=== PATIENT | male | born 1935 | race Caucasian/White ===

== ENCOUNTER 2021-04-22 21:16 | Inpatient (IN) | payer MEDICARE ==
[2021-04-22] MEDS ORDERED: METOPROLOL TARTRATE 50 MG TAB PO STA (21:56)
[2021-04-22] MEDS ORDERED: NALOXONE 0.4 MG/ML 1 ML VIAL IV PRN (21:57)
--- NOTE | 2021-04-22 22:02 | ED ---
Fall HPI - General Chief Complaint: Fall Stated Complaint: fall hip pain Time Seen by Provider: 04/22/21 21:34 Source: patient, EMS Mode of arrival: EMS - History of Present Illness Initial Comments: Ky is a pleasantly demented 85yo M who arrives at our hospital as a transfer from [facility] for management of non-displaced right femoral neck fracture. Apparently the patient fell out of bed this morning, he complained of pain in his hip but was ambulatory however could tell that he was hurting so she took him to the hospital for evaluation where they found a nondisplaced fracture. Currently [facility] does not have orthopedic availability and the requested transfer to our facility. - Related Data Allergies Allergy/AdvReac Type Severity Reaction Status Date / Time bupropion [From Zyban] AdvReac Unknown Verified 04/22/21 21:38 codeine AdvReac Unknown Verified 04/22/21 21:36 erythromycin base AdvReac Unknown Verified 04/22/21 21:35 iodine AdvReac Abdominal Verified 04/22/21 21:36 Pain rosuvastatin [From Crestor] AdvReac Unknown Verified 04/22/21 21:38 Review of Systems ROS Statement: Those systems with pertinent positive or pertinent negative responses have been documented in the HPI. ROS Other: All systems not noted in ROS Statement are negative. Past Medical History Past Medical History: Diabetes Mellitus, Hypertension, Myocardial Infarction ([place]), Renal Disease Additional Past Surgical History / Comment(s): 3 stents placed in 2018 Smoking Status: Former smoker Past Alcohol Use History: None Reported Past Drug Use History: None Reported General Exam - General Exam Comments Initial Comments: Physical Exam GENERAL: Patient is well-developed and well-nourished. Patient is nontoxic and well-hydrated and is in no distress. HENT: Normocephalic, Atraumatic. EYES: PERRL, EOMI PULMONARY: Unlabored respirations. CARDIOVASCULAR: RRR Warm and well perfused extremities ABDOMEN: Non-distended SKIN: No rashes or bruising : Deferred NEUROLOGIC: Alert and oriented to self MUSCULOSKELETAL: Decreased ROM of hip due to pain Course Vital Signs 04/22/21 21:21 Pulse Rate 90 Respiratory 18 Rate Blood Pressure 184/89 O2 Sat by Pulse 98 Oximetry Medical Decision Making - Medical Decision Making Patient was accepted as a transfer from the current time, patient was stable, upon arrival patient's pain is managed as well as he doesn't try to move Patient care was discussed with Rojas olmos from the orthopedics team who agrees with plan for admission but states that they will not be able to take him to the operating room tomorrow therefore he could have a regular diet, needs preoperative clearance and medical management. Patient care was discussed with Dr. Harrell who accepts the admission as a medical admission with orthopedics on consult. Disposition Clinical Impression: Fall, Femoral neck fracture Disposition: ADMITTED IP TO THIS HOSP Condition: Serious Is patient prescribed a controlled substance at d/c from ED?: No Referrals: Nonstaff,Physician [Primary Care Provider] - 1-2 days
--- NOTE | 2021-04-22 22:47 | XR ---
EXAMINATION TYPE: XR Hip RT and AP Pelvis DATE OF EXAM: 04/22/2021 COMPARISON: Today HISTORY: Hip pain TECHNIQUE: 3 views FINDINGS: The pelvic ring is intact. There is oblique fracture through the femoral neck. There is no significant displacement. There is slight impaction. There is no dislocation. The acetabula appear in tact. There are stents in the iliac arteries. Sacroiliac joints appear normal. IMPRESSION: Slightly impacted femoral neck fracture without change in position compared to exam 5 lashay rs ago.
[2021-04-22 23:43] LABS: Eosinophils % (A) 2 %; HCT 32.4 % (39.0-53.0); HGB 9.9 gm/dL (13.0-17.5); Hypochromasia Slight; Lymphocytes % (A) 13 %; MCH 31.9 pg (25.0-35.0); MCHC 30.5 g/dL (31.0-37.0); MCV 104.5 fL (80.0-100.0); Macrocytosis Moderate; Mean Platelet Volume 7.8; Monocytes % (A) 7 %; Neutrophils % (A) 75 %; Platelet Count 324 k/uL (150-450); RBC 3.09 m/uL (4.30-5.90); RDW 14.6 % (11.5-15.5); WBC 9.2 k/uL (3.8-10.6)
[2021-04-22 23:44] LABS: Basophils # (A) 0.1 k/uL (0-0.2); Basophils % (A) 1 %; Eosinophils # (A) 0.2 k/uL (0-0.7); Lymphocytes # (A) 1.2 k/uL (1.0-4.8); Monocytes # (A) 0.6 k/uL (0-1.0); Neutrophils # (A) 6.9 k/uL (1.3-7.7)
[2021-04-23 00:09] LABS: Albumin 2.9 g/dL (3.5-5.0); Calcium 8.7 mg/dL (8.4-10.2); Total Bilirubin 0.9 mg/dL (0.2-1.3); Total Protein 6.5 g/dL (6.3-8.2)
[2021-04-23 00:29] LABS: Potassium 4.6 mmol/L (3.5-5.1)
[2021-04-23] MEDS: ACETAMINOPHEN TAB 325 MG TAB PO PRN ×2 (01:00→12:34)
[2021-04-23] MEDS ORDERED: METOPROLOL PO SCH (09:30)
[2021-04-23] MEDS: PANTOPRAZOLE 40 MG TABLET PO SCH (11:57)
--- NOTE | 2021-04-23 14:19 | P.HPOR ---
History of Present Illness H&P Date: 04/23/21 Chief Complaint: Right femoral neck fracture Patient is an 85-year-old male who was transferred to [facility] for further evaluation and treatment of an injury to the right lower extremity. Apparently the patient fell out of bed early in the morning on 04/22/2021. He was able to ambulate 3 most the day. His wanted him to be evaluated due to the increasing pain. At arrival at the original hospital, x-rays demonstrated a impacted right femoral neck fracture. He was transferred to our hospital for further management. I was contacted by the emergency room staff regarding the patient, was able to review the image that was brought with him on a disc from another hospital. I was unable to discuss the case my attending Dr. Fontanez. Patient was admitted under internal medicine, orthopedic team was consulted for the fracture. Patient was evaluated at bedside today, he was quite out of bed and unable to answer all my questions, this including exactly how the fall happened. He notes most of the pain in the right groin with movement and weightbearing. He has no other orthopedic complaints at this time. He lives at home with his , he utilizes a walker with ambulation. Review of Systems Constitutional: Reports as per HPI Past Medical History Past Medical History: Diabetes Mellitus, Hypertension, Myocardial Infarction ([place]), Renal Disease Additional Past Medical History / Comment(s): One kidney blocked, other one almost blocked; has stent from [id number]; carotid endarctectomy; aortic aneurysm with stent placement; Last Myocardial Infarction Date:: 2017 History of Any Multi-Drug Resistant Organisms: None Reported Past Surgical History: Heart Catheterization With Stent Additional Past Surgical History / Comment(s): per spouse, 4 stents placed, last in 2018 Past Anesthesia/Blood Transfusion Reactions: No Reported Reaction Date of Last Stent Placement:: 2017 Smoking Status: Former smoker Past Alcohol Use History: None Reported Past Drug Use History: None Reported Medications and Allergies Home Medications Medication Instructions Recorded Confirmed Type Aspirin EC [Ecotrin Low Dose] 81 mg PO DAILY 04/22/21 04/22/21 History Ezetimibe [Zetia] 10 mg PO DAILY 04/22/21 04/22/21 History Fenofibrate Nanocrystallized 145 mg PO DAILY 04/22/21 04/22/21 History [Fenofibrate] Iron 27mg 1 tab PO DAILY 04/22/21 04/22/21 History Metoprolol (Unknown) 1 tab PO DIRECTED 04/22/21 04/22/21 History Pantoprazole Sodium [Protonix] 40 mg PO DAILY 04/22/21 04/22/21 History Allergies Allergy/AdvReac Type Severity Reaction Status Date / Time bupropion [From Zyban] AdvReac Unknown Verified 04/22/21 22:24 codeine AdvReac Unknown Verified 04/22/21 22:24 erythromycin base AdvReac Unknown Verified 04/22/21 22:24 iodine AdvReac Abdominal Verified 04/22/21 22:24 Pain rosuvastatin [From Crestor] AdvReac Unknown Verified 04/22/21 22:24 Physical Examination Right lower extremity: No obvious open lesions or sores are visualized throughout the extremity, there is no significant areas of erythema or soft tissue swelling Mild tenderness with palpation to the proximal femur, logroll maneuver does reproduce some discomfort Nontender with palpation surrounding the knee, lower leg, foot or ankle Plantar flexion, dorsiflexion, EHL, FHL are intact Sensory exam to light touch is intact throughout the extremity Dorsalis pedis pulses 2+ Results - Labs Labs: Abnormal Lab Results - Last 24 Hours (Table) 04/22/21 04/22/21 Range/Units 11:20 11:20 RBC 3.09 L (4.30-5.90) m/uL Hgb 9.9 L (13.0-17.5) gm/dL Hct 32.4 L (39.0-53.0) % MCV 104.5 H (80.0-100.0) fL MCHC 30.5 L (31.0-37.0) g/dL Sodium 134 L (137-145) mmol/L Chloride 108 H (98-107) mmol/L Carbon Dioxide 19 L (22-30) mmol/L BUN 53 H (9-20) mg/dL Creatinine 2.48 H (0.66-1.25) mg/dL Glucose 100 H (74-99) mg/dL Albumin 2.9 L (3.5-5.0) g/dL H & H 04/22/21 Range/Units 11:20 Hgb 9.9 L (13.0-17.5) gm/dL Hct 32.4 L (39.0-53.0) % Result Diagrams: 04/22/21 11:20 04/22/21 11:20 - Diagnostic results Hip x-ray: report reviewed, image reviewed (X-rays reviewed of the right hip. Images demonstrated an impacted femoral neck fracture. No other acute osseous abnormality's were visualized) Assessment and Plan Assessment: Right impacted femoral neck fracture Status post fall from bed Other medical comorbidities Plan: Dr. Fontanez was available today to examine the patient and discussed treatment options. Our plan is to proceed with a right hip hemiarthroplasty on 04/24/2021. I did reach out to the patient's today over the phone and discussed our course of treatment and plan for surgery. The risks and benefits of the procedure were discussed, this to include infection, blood loss, neurovascular injury, development of blood clots, development of pain/stiffness, possible need for subsequent surgery. She is in good understanding. Consent will be obtained prior to procedure Nothing by mouth diet after midnight Pain control, oral medication and IV as needed DVT prophylaxis, we'll begin subcu medication after surgery Other medical specialty recommendations Further recommendations to follow Time with Patient: Less than 30
[2021-04-23] MEDS: HYDROcodone/APAP 5-325MG 1 EACH TAB PO PRN (16:15)
[2021-04-23] MEDS: SODIUM CHLORIDE 0.9% 1,000 ML IV SCH (16:30)
--- NOTE | 2021-04-23 18:21 | P.HPIM ---
History of Present Illness H&P Date: 04/23/21 Chief Complaint: Fall/ hip pain 85yo male patient with history of diabetes mellitus, hypertension, CAD/DC and chronic kidney disease, who arrives at our hospital as a transfer from [facility] for management of non-displaced right femoral neck fracture. Apparently the patient fell out of bed this morning, he complained of pain in his hip but was ambulatory however could tell that he was hurting so she took him to the hospital for evaluation where they found a nondisplaced fracture. Currently [facility] does not have orthopedic availability and the requested transfer to our facility. Patient's family members are at the bedside and reports patient having advanced coronary artery disease with multiple interventions; is not available on the phone Workup in ED reveals a WBC of 9.2, hemoglobin of 9.9, hematocrit 32.4 and platelet count of 324, sodium 134, potassium 4.6, BUN/creatinine 53/2.48 and glucose of 100 Right hip x-ray reveals slightly impacted femoral neck fracture Review of Systems REVIEW OF SYSTEMS: CONSTITUTIONAL: No fever, no malaise, no fatigue. HEENT: No recent visual problems or hearing problems. Denied any sore throat. CARDIOVASCULAR: No chest pain, orthopnea, PND, no palpitations, no syncope. PULMONARY: No shortness of breath, no cough, no hemoptysis. GASTROINTESTINAL: No diarrhea, no nausea, no vomiting, no abdominal pain. NEUROLOGICAL: No headaches, no weakness, no numbness. HEMATOLOGICAL: Denies any bleeding or petechiae. GENITOURINARY: Denies any burning micturition, frequency, or urgency. MUSCULOSKELETAL/RHEUMATOLOGICAL: Right hip pain ENDOCRINE: Denies any polyuria or polydipsia. The rest of the 14-point review of systems is negative. Past Medical History Past Medical History: Diabetes Mellitus, Hypertension, Myocardial Infarction ([place]), Renal Disease Additional Past Medical History / Comment(s): One kidney blocked, other one almost blocked; has stent from [id number]; carotid endarctectomy; aortic aneurysm with stent placement; Last Myocardial Infarction Date:: 2018 History of Any Multi-Drug Resistant Organisms: None Reported Past Surgical History: Heart Catheterization With Stent Additional Past Surgical History / Comment(s): per spouse, 4 stents placed, last in 2018 Past Anesthesia/Blood Transfusion Reactions: No Reported Reaction Date of Last Stent Placement:: 2017 Smoking Status: Former smoker Past Alcohol Use History: None Reported Past Drug Use History: None Reported Medications and Allergies Home Medications Medication Instructions Recorded Confirmed Type Aspirin EC [Ecotrin Low Dose] 81 mg PO DAILY 04/22/21 04/22/21 History Ezetimibe [Zetia] 10 mg PO DAILY 04/22/21 04/22/21 History Fenofibrate Nanocrystallized 145 mg PO DAILY 04/22/21 04/22/21 History [Fenofibrate] Iron 27mg 1 tab PO DAILY 04/22/21 04/22/21 History Metoprolol (Unknown) 1 tab PO DIRECTED 04/22/21 04/22/21 History Pantoprazole Sodium [Protonix] 40 mg PO DAILY 04/22/21 04/22/21 History Allergies Allergy/AdvReac Type Severity Reaction Status Date / Time bupropion [From Zyban] AdvReac Unknown Verified 04/22/21 22:24 codeine AdvReac headache Verified 04/23/21 15:14 erythromycin base AdvReac Unknown Verified 04/22/21 22:24 iodine AdvReac Abdominal Verified 04/22/21 22:24 Pain rosuvastatin [From Crestor] AdvReac Unknown Verified 04/22/21 22:24 Physical Exam Vitals: Vital Signs Temp Pulse Pulse Resp BP BP Pulse Ox 04/23/21 02:00 97.9 F 59 L 16 164/72 98 04/22/21 23:43 61 18 172/90 96 04/22/21 22:57 89 18 174/93 98 04/22/21 21:21 99.1 F 90 18 184/89 98 Intake and Output 04/22/21 04/23/21 04/23/21 22:59 06:59 14:59 Intake Total 250 Balance 250 Intake: Oral 250 Other: # Voids 2 Weight 65.771 kg 65.771 kg PHYSICAL EXAMINATION: GENERAL: The patient is alert and oriented x3, not in any acute distress. Well developed, well nourished. HEENT: Pupils are round and equally reacting to light. EOMI. No scleral icterus. No conjunctival pallor. Normocephalic, atraumatic. No pharyngeal erythema. No thyromegaly. CARDIOVASCULAR: S1 and S2 present. No murmurs, rubs, or gallops. PULMONARY: Chest is clear to auscultation, no wheezing or crackles. ABDOMEN: Soft, nontender, nondistended, normoactive bowel sounds. No palpable organomegaly. MUSCULOSKELETAL: No joint swelling or deformity. EXTREMITIES: Pain/swelling/tenderness with movement of right lower extremity NEUROLOGICAL: Gross neurological examination did not reveal any focal deficits. SKIN: No rashes. Results CBC & Chem 7: 04/22/21 11:20 04/22/21 11:20 Labs: Abnormal Lab Results - Last 24 Hours (Table) 04/22/21 04/22/21 Range/Units 11:20 11:20 RBC 3.09 L (4.30-5.90) m/uL Hgb 9.9 L (13.0-17.5) gm/dL Hct 32.4 L (39.0-53.0) % MCV 104.5 H (80.0-100.0) fL MCHC 30.5 L (31.0-37.0) g/dL Sodium 134 L (137-145) mmol/L Chloride 108 H (98-107) mmol/L Carbon Dioxide 19 L (22-30) mmol/L BUN 53 H (9-20) mg/dL Creatinine 2.48 H (0.66-1.25) mg/dL Glucose 100 H (74-99) mg/dL Albumin 2.9 L (3.5-5.0) g/dL Thrombosis Risk Factor Assmnt - Choose All That Apply Each Factor Represents 1 point: Medical pt on bed rest Other Risk Factors: Yes Each Risk Factor Represents 3 Points: Age 75 years or older Other congenital or acquired thrombophilia - If yes, enter type in comment: No Each Risk Factor Represents 5 Points: Hip, pelvis, or leg fracture (< 1 month) Thrombosis Risk Factor Assessment Total Risk Factor Score: 9 Thrombosis Risk Factor Assessment Level: High Risk Assessment and Plan Assessment: 1. Fall/right hip fracture - Likely mechanical fall; denies any chest pain or shortness of breath or palpitations - Orthopedic is consulted with plans for possible surgical intervention later today - We will add IV morphine for pain control; encourage incentive spirometry 2. Hypertension; stable on metoprolol 50 mg daily 3. Hyperlipidemia; Zetia 10 mg daily along with fenofibrate 160 mg daily 4. Gastroesophageal reflux disease; Protonix 40 mg daily 5. History of CAD/DC in the past; patient denies any complaint of chest pain or shortness of breath; EKG is completed and reviewed; patient is currently on aspirin, beta blockers and statin therapy; detailed discussion with patient's family at bedside report a pretty advanced coronary artery disease with multiple interventions; we will consult cardiology for presurgical clearance and testing DVT prophylaxis; per orthopedic recommendations CODE STATUS; full code
[2021-04-23 21:03] LABS: African American GFR (CKD) 26 (>60 ml/min/1.73 sqM); Anion Gap 5 mmol/L; Blood Urea Nitrogen 48 mg/dL (9-20); Carbon Dioxide 21 mmol/L (22-30); Chloride 107 mmol/L (98-107); Glucose 168 mg/dL (74-99); Non-African American GFR(CKD) 22 (>60 ml/min/1.73 sqM); Potassium 4.3 mmol/L (3.5-5.1); Sodium 133 mmol/L (137-145)
[2021-04-23 22:02] LABS: INR 1.2 (<1.2); Partial Thromboplastin Time 25.4 sec (22.0-30.0); Prothrombin Time 12.7 sec (9.0-12.0)
[2021-04-24] MEDS: HYDROcodone/APAP 5-325MG 1 EACH TAB PO PRN ×2 (00:59→19:18)
[2021-04-24] MEDS: MORPHINE SULFATE 4 MG/ML SYRINGE IVP PRN ×2 (05:21→17:36)
[2021-04-24] MEDS: SODIUM CHLORIDE 0.9% 1,000 ML IV SCH ×3 (07:36→20:18)
[2021-04-24] MEDS: EZETIMIBE 10 MG TAB PO SCH (08:24)
[2021-04-24] MEDS: PANTOPRAZOLE 40 MG TABLET PO SCH (08:24)
[2021-04-24] MEDS: FENOFIBRATE 160 MG TAB PO SCH (08:24)
[2021-04-24] MEDS ORDERED: METOPROLOL 25 MG PO SCH (08:45)
[2021-04-24] MEDS: METOPROLOL SUCCINATE (ER) 25 MG TAB.ER.24H PO SCH (10:18)
--- NOTE | 2021-04-24 11:14 | P.PN ---
Subjective Patient seen and examined. Patient not having any significant angina or heart failure type symptoms. Appears euvolemic on exam. Patient with multiple medical comorbidities which make him high risk for proposed surgery however no prohibitive risk. Continue with beta nichole and gentle IV fluid hydration. Full consult to follow. Objective - Vital Signs Vital signs: Vital Signs Temp 97.4 F L 04/24/21 05:16 Pulse 93 04/24/21 10:17 Resp 16 04/24/21 05:16 BP 207/95 04/24/21 10:17 Pulse Ox 97 04/24/21 10:17 Intake & Output 04/23/21 04/24/21 04/24/21 18:59 06:59 18:59 Intake Total 1150 Balance 1150 Intake: Intake, IV Titration 900 Amount Sodium Chloride 0.9% 1, 900 000 ml @ 100 mls/hr IV . Q10H STEPHANIE Rx#:[id number] Oral 250 Other: Voiding Method Urinal Urinal # Voids 2 4 - Labs CBC & Chem 7: 04/22/21 11:20 04/23/21 20:23 Labs: Abnormal Lab Results - Last 24 Hours (Table) 04/23/21 04/23/21 Range/Units 20:23 21:23 PT 12.7 H (9.0-12.0) sec INR 1.2 H (<1.2) Sodium 133 L (137-145) mmol/L Carbon Dioxide 21 L (22-30) mmol/L BUN 48 H (9-20) mg/dL Creatinine 2.53 H (0.66-1.25) mg/dL Glucose 168 H (74-99) mg/dL Calcium 8.0 L (8.4-10.2) mg/dL
[2021-04-24] MEDS ORDERED: hydrALAZINE HCL 20 MG/ML 1 ML VIAL IVP PRN (11:20)
--- NOTE | 2021-04-24 11:24 | P.CRDCN ---
History of Present Illness Consult date: 04/24/21 Reason for Consult (text): preop clearance History of present illness: HISTORY OF PRESENT ILLNESS This is an 85-year-old male patient follows with cardiology out of [facility] with past medical history of myocardial infarction 2004 status post 4 vessel CABG, myocardial infarction in 2018 while in [place] status post stents, carotid artery stenosis bilateral with surgery performed right sided, aortic aneurysm status post stent done at [facility], kidney stent, borderline diabetic on diet control, short-term memory loss, chronic anemia on iron, hypertension. Patient's and son are at the bedside and most history is obt ained from them. They do not recall any history of heart failure, valvular heart disease or atrial fibrillation. His creatinine today is 2.5 and apparently his baseline is 3.5. Yesterday morning, patient was apparently was trying to get out of bed and had a fall. Details are not clear as patient sleeps in the downstairs and his 's sleeps upstairs. Patient laid on the floor for about an hour and she was not able to lift him and EMS was called. Patient was initially seen at [facility]. Patient is afebrile, heart rate in the 90s, blood pressure 107/95, pulse ox 97% on room air. EKG is a sinus rhythm with no acute ST changes. CAT scan of brain showed no acute abnormality. Covid testing was negative. X-ray of the hip showed a nondisplaced right femur neck fracture and patient was transferred to [facility] for treatment. Laboratory studies performed here revealed hemoglobin of 9.9, his platelet count 324, WBC 9.2. INR 1.2. Sodium 133, CO2 21, BUN 48 creatinine 2.53. Blood sugar 168. REVIEW OF SYSTEMS Constitutional: No fever, no chills. No weakness, fatigue or lethargy. EENT: No headache. No dizziness. Lungs: No shortness of breath, cough, no sputum production. No wheezing. Cardiovascular: No chest pain, no lower extremity edema. No palpitations. No paroxysmal nocturnal dyspnea. No orthopnea. No lightheadedness or dizziness. No syncopal episodes. Abdominal: No abdominal pain. No nausea, vomiting. No diarrhea. No constipation. No bloody or tarry stools.. No loss of appetite. Genitourinary: No dysuria.. No urinary retention. Musculoskeletal: No myalgias. No muscle weakness, no gait dysfunction, no frequent falls. No back pain. No neck pain. Right hip pain. Integumentary: No wounds, no lesions. No rash or pruritus. No unusual bruising. Neurologic: No aphasia. No facial droop. No change in mentation, chronic short- term memory loss. No head injury. No headache. No paralysis. No paresthesia. Psychiatric: No depression. No anxiety. Endocrine: Noted abnormal blood sugars. PHYSICAL EXAMINATION Gen: This is a an 85-year-old male. He is resting bed appears to be comfortable at rest. No respiratory distress is noted. Patient's and son are at bedside HEENT: Head is atraumatic, normocephalic. Pupils equal, round. Sclerae is anicteric. NECK: Supple. No JVD. No lymphadenopathy. No thyromegaly. No carotid bruits. LUNGS: Clear to auscultation. No wheezes or rhonchi. No intercostal retractions. HEART: Regular rate and rhythm. Systolic murmur. ABDOMEN: Soft. Bowel sounds are present. No masses. No tenderness. EXTREMITIES: No pedal edema. No calf tenderness. Dorsalis pedis +1 bilaterally. NEUROLOGICAL: Patient is awake, alert and oriented x3. Cranial nerves 2 through 12 are grossly intact. ASSESSMENT Right femur neck fracture Coronary artery disease with previous four-vessel CABG and stents, details are not known Bilateral carotid artery disease Aortic aneurysm status post stent Hypertension, uncontrolled Chronic kidney disease Diabetic on diet controlled Short-term memory loss Chronic anemia Remote history of tobacco use Lower extremity pain with walking, may consider workup of possible PAD as an outpt PLAN Patient is scheduled for right hemiarthroplasty. He is at high risk for complications from surgical intervention but surgery is necessary. Patient resumed on metoprolol 25 mg daily, Start hydralazine 10 g IV push every 4 hours for systolic blood pressure greater than 150 Recommend gentle IV fluid hydration only at this point. Further recommendations to follow based upon clinical course Thank you kindly for this consultation. Nurse practitioner note has been reviewed, I agree with documented findings and plan of care. Patient was seen and examined. Past Medical History Past Medical History: Diabetes Mellitus, Hypertension, Myocardial Infarction ([place]), Renal Disease Additional Past Medical History / Comment(s): One kidney blocked, other one almost blocked; has stent from [id number]; carotid endarctectomy; aortic aneurysm with stent placement; Last Myocardial Infarction Date:: 2017 History of Any Multi-Drug Resistant Organisms: None Reported Past Surgical History: Heart Catheterization With Stent Additional Past Surgical History / Comment(s): per spouse, 4 stents placed, last in 2018 Past Anesthesia/Blood Transfusion Reactions: No Reported Reaction Date of Last Stent Placement:: 2017 Smoking Status: Former smoker Past Alcohol Use History: None Reported Past Drug Use History: None Reported Medications and Allergies Home Medications Medication Instructions Recorded Confirmed Type Aspirin EC [Ecotrin Low Dose] 81 mg PO DAILY 04/22/21 04/22/21 History Ezetimibe [Zetia] 10 mg PO DAILY 04/22/21 04/22/21 History Fenofibrate Nanocrystallized 145 mg PO DAILY 04/22/21 04/22/21 History [Fenofibrate] Iron 27mg 1 tab PO DAILY 04/22/21 04/22/21 History Metoprolol (Unknown) 25 mg PO DAILY 04/22/21 04/24/21 History Pantoprazole Sodium [Protonix] 40 mg PO DAILY 04/22/21 04/22/21 History Allergies Allergy/AdvReac Type Severity Reaction Status Date / Time bupropion [From Zyban] AdvReac Unknown Verified 04/22/21 22:24 codeine AdvReac headache Verified 04/23/21 15:14 erythromycin base AdvReac Unknown Verified 04/22/21 22:24 iodine AdvReac Abdominal Verified 04/22/21 22:24 Pain rosuvastatin [From Crestor] AdvReac Unknown Verified 04/22/21 22:24 Physical Exam Vitals: Vital Signs Temp Pulse Resp BP Pulse Ox 04/24/21 05:16 97.4 F L 95 16 214/99 98 04/23/21 20:11 97.6 F 73 16 176/75 98 04/23/21 12:10 97.5 F L 70 17 152/70 98 Intake and Output 04/23/21 04/24/21 04/24/21 22:59 06:59 14:59 Intake Total 1150 Balance 1150 Intake: Intake, IV Titration 900 Amount Sodium Chloride 0.9% 1, 900 000 ml @ 100 mls/hr IV . Q10H [facility] Rx#:[id number] Oral 250 Other: Voiding Method Urinal Urinal # Voids 2 4 Results 04/22/21 11:20 04/24/21 06:44 Coagulation 04/23/21 Range/Units 21:23 PT 12.7 H (9.0-12.0) sec APTT 25.4 (22.0-30.0) sec Comprehensive Metabolic Panel 04/23/21 Range/Units 20:23 Sodium 133 L (137-145) mmol/L Potassium 4.3 (3.5-5.1) mmol/L Chloride 107 (98-107) mmol/L Carbon Dioxide 21 L (22-30) mmol/L BUN 48 H (9-20) mg/dL Creatinine 2.53 H (0.66-1.25) mg/dL Glucose 168 H (74-99) mg/dL Calcium 8.0 L (8.4-10.2) mg/dL Current Medications Generic Name Dose Route Start Last Admin Trade Name Freq PRN Reason Stop Dose Admin Acetaminophen 650 mg 04/22/21 21:57 04/23/21 12:34 Acetaminophen Tab 325 Mg Tab PO 650 mg Q6HR PRN Administration Mild Pain or Fever > 100.5 Hydrocodone Bitart/Acetaminophen 1 each 04/23/21 15:08 04/24/21 00:59 Hydrocodone/Apap 5-325mg 1 Each Tab PO 1 each Q6HR PRN Administration Pain Ezetimibe 10 mg 04/24/21 09:00 04/24/21 08:24 Ezetimibe 10 Mg Tab PO 10 mg DAILY [facility] Administration Fenofibrate 160 mg 04/24/21 09:00 04/24/21 08:24 Fenofibrate 160 Mg Tab PO 160 mg DAILY STEPH[facility]IE Administration Sodium Chloride 1,000 mls @ 100 mls/hr 04/23/21 15:00 04/24/21 07:36 Saline 0.9% IV Not Given .Q10H [facility] Metoprolol Succinate 25 mg 04/24/21 10:00 Metoprolol Succinate (Er) 25 Mg Tab.Er.24h PO DAILY STEPH[facility]IE Morphine Sulfate 4 mg 04/23/21 18:22 04/24/21 05:21 Morphine Sulfate 4 Mg/Ml Syringe IVP 4 mg Q6HR PRN Administration Pain Naloxone HCl 0.2 mg 04/22/21 21:57 Naloxone 0.4 Mg/Ml 1 Ml Vial IV Q2M PRN Opioid Reversal Pantoprazole Sodium 40 mg 04/23/21 09:30 04/24/21 08:24 Pantoprazole 40 Mg Tablet PO 40 mg DAILY@0730 [facility] Administration Tramadol HCl 50 mg 04/23/21 15:13 Tramadol 50 Mg Tab PO QID PRN Moderate Pain Intake and Output 04/23/21 04/24/21 04/24/21 22:59 06:59 14:59 Intake Total 1150 Balance 1150 Intake: Intake, IV Titration 900 Amount Sodium Chloride 0.9% 1, 900 000 ml @ 100 mls/hr IV . Q10H [facility] Rx#:[id number] Oral 250 Other: Voiding Method Urinal Urinal # Voids 2 4 04/22/21 11:20 04/23/21 20:23
[2021-04-24] MEDS ORDERED: MORPHINE SULFATE 2 MG/ML SYRINGE IV PRN (12:22)
[2021-04-24] MEDS ORDERED: ONDANSETRON 4 MG/2 ML VIAL IVP PRN (12:22)
[2021-04-24] MEDS ORDERED: MAGNESIUM HYDROXIDE 2,400 MG/10 ML CUP PO PRN (12:22)
[2021-04-24] MEDS ORDERED: MIDAZOLAM 2 MG/2 ML VIAL ONE (12:25)
[2021-04-24] MEDS ORDERED: SODIUM CHLORIDE 0.9% 1,000 ML IV ONE (12:25)
[2021-04-24] MEDS ORDERED: PHENYLEPHRINE-0.9% NACL SYG 1,000 MCG/10 ML SYRINGE ONE (12:25)
[2021-04-24] MEDS ORDERED: fentaNYL (PF) 50 MCG/ML 2 ML AMP ONE (12:25)
[2021-04-24 12:45] LABS: African American GFR (CKD) 29.1 (60.0-200.0); Anion Gap 10.9 mmol/L (10.00-18.00); BUN/Creat Ratio 17.87 Ratio (12.00-20.00); Blood Urea Nitrogen 41.1 mg/dL (9.0-27.0); Calcium 8.5 mg/dL (8.7-10.3); Carbon Dioxide 19.1 mmol/L (20.0-27.5); Non-African American GFR(CKD) 25.1 (60.0-200.0); Potassium 4.2 mmol/L (3.5-5.5)
[2021-04-24] MEDS ORDERED: ceFAZolin 1,000 MG in SODIUM CHLORIDE 0.9% 1,000 ML IRRIGATION ONE (13:06)
[2021-04-24] MEDS ORDERED: LACTATED RINGERS 1,000 ML IV ONE (13:44)
[2021-04-24] MEDS ORDERED: LABETALOL SYRINGE 5 MG/ML IVP ONE (14:56)
--- NOTE | 2021-04-24 15:13 | XR ---
EXAMINATION TYPE: XR Hip Limited RT DATE OF EXAM: 04/24/2021 CLINICAL HISTORY: Right hip fracture. TECHNIQUE: Single AP portable view of the right hip is obtained immediately postoperatively. COMPARISON: Pelvic and right hip x-ray 2 days earlier.. FINDINGS: Metallic hardware from right hip arthroplasty is seen and appears satisfactory in alignment and position. There is evidence of recent surgery with subcutaneous gas and vertical oriented skin kirit noted laterally. IMPRESSION: Metallic hardware from right hip arthroplasty is satisfactory in position.
[2021-04-24] MEDS: SENNOSIDES-DOCUSATE SODIUM 1 EACH TAB PO SCH (19:18)
--- NOTE | 2021-04-24 20:26 | P.PN ---
Subjective Progress Note Date: 04/24/21 Principal diagnosis: Fall/Right hip fracture 85yo male patient with history of diabetes mellitus, hypertension, CAD/TX and chronic kidney disease, who arrives at our hospital as a transfer from [facility] for management of non-displaced right femoral neck fracture. Apparently the patient fell out of bed this morning, he complained of pain in his hip but was ambulatory however could tell that he was hurting so she took him to the hospital for evaluation where they found a nondisplaced fracture. Currently [facility] does not have orthopedic availability and the requested transfer to our facility. Patient's family members are at the bedside and reports patient having advanced coronary artery disease with multiple interventions; is not available on the phone Workup in ED reveals a WBC of 9.2, hemoglobin of 9.9, hematocrit 32.4 and platelet count of 324, sodium 134, potassium 4.6, BUN/creatinine 53/2.48 and glucose of 100 Right hip x-ray reveals slightly impacted femoral neck fracture Patient is seen and evaluated resting; patient is status post right hip hemiarthroplasty Objective - Vital Signs Vital signs: Vital Signs Temp 97.6 F 04/24/21 14:27 Pulse 78 04/24/21 15:22 Resp 16 04/24/21 15:22 BP 227/92 04/24/21 15:22 Pulse Ox 99 04/24/21 15:22 Intake & Output 04/23/21 04/24/21 04/24/21 18:59 06:59 18:59 Intake Total 1150 1251 Output Total 80 Balance 1150 1171 Intake: IV 1251 Intake, IV Titration 900 Amount Sodium Chloride 0.9% 1, 900 000 ml @ 100 mls/hr IV . Q10H [facility] Rx#:[id number] Oral 250 Output: Estimated Blood Loss 80 Other: Voiding Method Urinal Urinal # Voids 2 4 - Exam GENERAL: The patient is alert and oriented x3, not in any acute distress. Well developed, well nourished. HEENT: Pupils are round and equally reacting to light. EOMI. No scleral icterus. No conjunctival pallor. Normocephalic, atraumatic. No pharyngeal erythema. No thyromegaly. CARDIOVASCULAR: S1 and S2 present. No murmurs, rubs, or gallops. PULMONARY: Chest is clear to auscultation, no wheezing or crackles. ABDOMEN: Soft, nontender, nondistended, normoactive bowel sounds. No palpable organomegaly. MUSCULOSKELETAL: No joint swelling or deformity. EXTREMITIES: Pain/swelling/tenderness with movement of right lower extremity NEUROLOGICAL: Gross neurological examination did not reveal any focal deficits. SKIN: No rashes. - Labs CBC & Chem 7: 04/22/21 11:20 04/24/21 06:44 Labs: Abnormal Lab Results - Last 24 Hours (Table) 04/23/21 04/23/21 04/24/21 Range/Units 20:23 21:23 06:44 PT 12.7 H (9.0-12.0) sec INR 1.2 H (<1.2) Sodium 133 L (137-145) mmol/L Carbon Dioxide 21 L 19.1 L (22-30) mmol/L BUN 48 H 41.1 H (9-20) mg/dL Creatinine 2.53 H 2.3 H (0.66-1.25) mg/dL Est GFR (CKD-EPI)AfAm 29.1 L (60.0-200.0) Est GFR (CKD-EPI)NonAf 25.1 L (60.0-200.0) Glucose 168 H (74-99) mg/dL Calcium 8.0 L 8.5 L (8.4-10.2) mg/dL Assessment and Plan Assessment: 1. Fall/right hip fracture - Likely mechanical fall; denies any chest pain or shortness of breath or palpitations - Orthopedic is consulted with plans for possible surgical intervention later today - We will add IV morphine for pain control; encourage incentive spirometry 2. Hypertension; stable on metoprolol 50 mg daily 3. Hyperlipidemia; Zetia 10 mg daily along with fenofibrate 160 mg daily 4. Gastroesophageal reflux disease; Protonix 40 mg daily 5. History of CAD/TX in the past; patient denies any complaint of chest pain or shortness of breath; EKG is completed and reviewed; patient is currently on a spirin, beta blockers and statin therapy; detailed discussion with patient's family at bedside report a pretty advanced coronary artery disease with multiple interventions; we will consult cardiology for presurgical clearance and testing DVT prophylaxis; per orthopedic recommendations CODE STATUS; full code
--- NOTE | 2021-04-24 21:57 | P.OP ---
Date of Procedure: 04/24/21 Preoperative Diagnosis: Right displaced femoral neck fracture Postoperative Diagnosis: Right displaced femoral neck fracture Procedure(s) Performed: Right hip hemiarthroplasty for right displaced femoral neck fracture Implants: 1.)Pool Accolade II femoral stem, neck angle 132, size 6, 35mm neck length. 2.) Pool V40 Femoral head 28mm OD, -4mm offset. 3.) Francisco UHR [place] head Bipolar Component, OD 53mm. Anesthesia: spinal Surgeon: Sean Fontanez [employer] Engineer [employer]: Erasmo Bailey Estimated Blood Loss (ml): 80 Pathology: none sent Condition: stable Disposition: PACU Description of Procedure: This is a 85 year old male with multiple medical comorbidities who presented s/p fall from standing on to their right hip with inability to ambulate and pain in their hip. The patient was evaluated in the ED and admitted to the hospital with medical clearance for surgical intervention. Risks and benefits of surgery including bleeding, damage to surrounding tissue, infection, need for further surgery as well as risks of anesthesia including DVT pulmonary embolism and even and the patient wished to proceed with surgical intervention. The patient was seen in the pre-operative area by myself. Consent and H&P were completed and updated. The correct extremity was marked in the pre-operative area by myself and all other question were answered. Operative narrative: The patient was brought to the operating room by the department of anesthesia. Spinal anesthesia was performed by the department of anesthesia. The patient was then transferred carefully to the operative table and placed in the lateral position with an axillary role placed in the contralateral arm-pit region and the patient was secured in the lateral position with the aid of a pegboard with the hip perpendicular to the floor. All bony prominences were well padded. The left lower extremity was then prepped and draped in normal sterile fashion. Pre-operative time out was performed indicating the correct patient, procedure and laterality. All in the room agreed. Pre-operative antibiotics were given prior to skin incision. A curvilinear incision was made with a 10-blade scalpel on the lateral aspect of the hip, slightly posterior to the greater trochanter and carried distally towards the axis of the femoral shaft to initiate the posterior approach to the hip joint. Bovie cautery was used for meticulous hemostasis and dissection was then taken down to the tensor fascia. Tensor fascia was incised distally and extended proximally to the gluteus elaine muscle. Blunt finger dissection was then used to split the gluteus elaine muscle in its natural plane. Charnley retractor was then placed deep to the tensor fascia and gluteus elaine to unveil the trochanteric bursa. Bursa was sharply incised taking care to protect the sciatic nerve posteriorly. The short external rotators were then identified. Marcel retractor was then placed between the gluteus medius and piriformis tendon. The piriformis tendon and short external rotators were then tagged with a #5 Ethibond suture. Using bovie cautery the short external rotators were then incised off of their brandon insertion at the piriformis fossa and reflected posteriorly to protect the sciatic nerve. The posterior hip capsule was then incised in a L shaped fashion along the superior portion of the femoral neck taking care to stay on bone. Fracture hematoma was then evacuated, the femoral head was the extracted with a corkscrew and sized to a 52-53. The acetabulum was then thoroughly irrigated and all fracture fragments were debrided and removed and the labrum was intact with no signs of acetabular arthritis. Size 53 head on a stick was then placed into the acetabulum with good suction and appropriate fit and decision was made to go forward with a size 53 outer diameter head. Further remnants of the external rotator insertion were debrided form the piriformis fossa and femoral elevator and Wideman retractor was used to elevate the femur. A touch up neck was performed 1.5cm proximal to the lesser trochanter. Box osteotome was then utilized to gain entrance into the medullary canal taking care to stay lateralized. Axial canal finder was then inserted down the femoral shaft again keeping lateral pressure upon insertion. Sequential femoral broaching was then performed starting with a size 0 broach up to a size 6 which appeared to have a solid fit. A standard length neck and 0 offset femoral head was trialed. The hip was reduced and leg lengths were checked and found to be acceptable but slightly long and tight, therefore -4 size was trialed and found to be a better fit. The hip appeared to have good stability. The hip was then dislocated and the stem was found to be intact with good fit still after trialing. Final implants were then selected including a size 6, 132 degree neck femoral stem with a 53 outer diameter bipolar head and a -4 offset which was assembled and inserted into the femoral canal with lateral pressure to avoid varus placement. The hip was then reduced and ranged again and was stable with appropriate tensioning and leg lengths. A 2.0 drill bit was then used to drill 2 holes in the posterior aspect of the greater trochanter. The previously tagged short external rotators and capsule were then passed through the drill holes with a suture passer and the hip was then abducted and externally rotated to take pressure off of the short external rotators and capsular repair. The #5 Ethibond sutures were then tied with appropriate tension and a solid repair of the external rotators and posterior capsule was able to be achieved. IT band was then closed with locking #1 Vicryl sutures. Subcutaneous closure was performed with 0 Vicryl followed by 2-0 Vicryl and kirit for closure of skin. A sterile Optifoam dressing was then applied to the incision. The patient was then woken by the department of anesthesia and transferred back to the hospital bed and transported to PACU in stable condition. All needle and instrument counts were correct at the end of the procedure. Rojas DELONG was present for the case for skilled assistance, implant placement and protection of neurovascular structures. Sean Fontanez DO Orthopedic Surgeon
[2021-04-25] MEDS: traMADol 50 MG TAB PO PRN ×3 (00:13→19:21)
[2021-04-25] MEDS: HYDROcodone/APAP 5-325MG 1 EACH TAB PO PRN ×2 (04:12→10:11)
[2021-04-25 06:32] LABS: Basophils % (A) 0 %; Eosinophils % (A) 0 %; HCT 26.8 % (39.0-53.0); HGB 8.5 gm/dL (13.0-17.5); Hypochromasia Slight; Lymphocytes # (A) 0.8 k/uL (1.0-4.8); Lymphocytes % (A) 7 %; MCH 32.7 pg (25.0-35.0); MCHC 31.7 g/dL (31.0-37.0); MCV 103.4 fL (80.0-100.0); Macrocytosis Slight; Monocytes # (A) 0.6 k/uL (0-1.0); Monocytes % (A) 5 %; Neutrophils # (A) 10.5 k/uL (1.3-7.7); Neutrophils % (A) 87 %; Platelet Count 340 k/uL (150-450); RBC 2.59 m/uL (4.30-5.90); WBC 12.1 k/uL (3.8-10.6)
[2021-04-25] MEDS: FENOFIBRATE 160 MG TAB PO SCH (07:58)
[2021-04-25] MEDS: PANTOPRAZOLE 40 MG TABLET PO SCH (07:58)
[2021-04-25] MEDS: METOPROLOL SUCCINATE (ER) 25 MG TAB.ER.24H PO SCH (07:58)
[2021-04-25] MEDS: EZETIMIBE 10 MG TAB PO SCH (07:58)
[2021-04-25] MEDS: SODIUM CHLORIDE 0.9% 1,000 ML IV SCH ×2 (07:59→17:10)
--- NOTE | 2021-04-25 08:53 | P.PN ---
Subjective Progress Note Date: 04/25/21 Principal diagnosis: Status post right hip hemiarthroplasty Patient was evaluated today at bedside, he does have family present. He appears comfortable and resting in bed. He states that he has generalized discomfort of the right lower extremity, mainly with movement. Currently denies any headaches, lightheadedness, chest pain, shortness of breath. Objective - Vital Signs Vital signs: Vital Signs Temp 97.8 F 04/25/21 04:29 Pulse 106 H 04/25/21 04:29 Resp 16 04/25/21 04:29 BP 133/74 04/25/21 04:29 Pulse Ox 100 04/25/21 04:29 Intake & Output 04/24/21 04/25/21 04/25/21 18:59 06:59 18:59 Intake Total 1851 1900 Output Total 80 200 Balance 1771 1700 Intake: IV 1251 Intake, IV Titration 600 1300 Amount Sodium Chloride 0.9% 1, 600 1200 000 ml @ 100 mls/hr IV . Q10H [facility] Rx#:[id number] ceFAZolin 2 gm In Sodium 100 Chloride 0.9% 50 ml @ 100 mls/hr IVPB Q8H [facility] Rx#: [id number] Oral 600 Output: Urine 200 Estimated Blood Loss 80 Other: Voiding Method Urinal Urinal - Exam Right lower extremity: Foam dressing is in good position and condition. There is minimal soft tissue swelling and ecchymosis surrounding the medial and lateral aspects of the incision. Calf is soft, no tenderness with palpation. Plantar flexion, dors iflexion, EHL, FHL are intact. Sensory exam to light touch throughout the extremity is intact, dorsal pedis pulses 2+. - Labs CBC & Chem 7: 04/25/21 06:09 04/24/21 06:44 Labs: Abnormal Lab Results - Last 24 Hours (Table) 04/24/21 04/25/21 Range/Units 06:44 06:09 WBC 12.1 H (3.8-10.6) k/uL RBC 2.59 L (4.30-5.90) m/uL Hgb 8.5 L (13.0-17.5) gm/dL Hct 26.8 L (39.0-53.0) % MCV 103.4 H (80.0-100.0) fL Neutrophils # 10.5 H (1.3-7.7) k/uL Lymphocytes # 0.8 L (1.0-4.8) k/uL Carbon Dioxide 19.1 L (20.0-27.5) mmol/L BUN 41.1 H (9.0-27.0) mg/dL Creatinine 2.3 H (0.6-1.5) mg/dL Est GFR (CKD-EPI)AfAm 29.1 L (60.0-200.0) Est GFR (CKD-EPI)NonAf 25.1 L (60.0-200.0) Calcium 8.5 L (8.7-10.3) mg/dL Assessment and Plan Assessment: Postoperative day #1 status post right hip hemiarthroplasty Plan: Pain control, continue low-dose oral medication, IV pain medication as needed f or breakthrough DVT prophylaxis, continue subcu medication Wound care, monitor dressing, ok to change after 5 days Weight-bear as tolerated with walker PT/OT evaluation Medical recommendations Discharge planning: Anticipate discharge to rehab in the next day or 2 Time with Patient: Less than 30
[2021-04-25] MEDS ORDERED: amLODIPine 5 MG TAB PO SCH (09:30)
[2021-04-25 11:38] LABS: African American GFR (CKD) 24 (>60 ml/min/1.73 sqM); Anion Gap 7 mmol/L; Blood Urea Nitrogen 50 mg/dL (9-20); Calcium 8.1 mg/dL (8.4-10.2); Carbon Dioxide 17 mmol/L (22-30); Chloride 111 mmol/L (98-107); Glucose 111 mg/dL (74-99); Non-African American GFR(CKD) 21 (>60 ml/min/1.73 sqM); Potassium 4.6 mmol/L (3.5-5.1); Sodium 135 mmol/L (137-145)
--- NOTE | 2021-04-25 11:38 | XR ---
EXAMINATION TYPE: XR chest 1V portable DATE OF EXAM: 04/25/2021 Comparison: None Clinical History: 85-year-old male shortness of breath Findings: Median sternotomy wires are present. Post-CABG clips projecting at the left base. Loop recorder devic e projecting at the apex of the heart. Mild hyperinflation. Heart upper limits of normal in size. The re is patchy opacity at the right mid lung and some additional stranding bibasilar atelectasis. Impression: 1. Hyperinflation. Suspect underlying emphysema/COPD. 2. Post-CABG changes. 3. Some patchy atelectasis versus developing infiltrate at the right midlung. Clinically correlate.
--- NOTE | 2021-04-25 11:55 | P.PN ---
Subjective This is an 85-year-old male with a past medical history of myocardial infarction 2004 status post 4 vessel CABG, myocardial infarction in 2018 while in [place] status post stents, carotid artery stenosis bilateral with surgery performed right sided, aortic aneurysm status post stent done at [facility], kidney stent, borderline diabetic on diet control, short-term memory loss, chronic anemia on iron, hypertension. He follows with cardiology out of [facility]. We have been consulted for surgical clearance. Patient was admitted on after a mechanical fall and was found to have a right femur neck fracture. He underwent Right hip hemiarthroplasty on 04/24/2021. Patient seen and examined at bedside, no acute distress. He denies any chest pain, shortness of breath, lightheadedness, dizziness. Appears to be euvolemic on exam. Blood pressure 133/74, heart rate 85, afebrile, oxygen saturation greater than 92% on room air. Telemetry reviewed patient in sinus mechanism heart rate trend in the 80s He's currently maintained on IV hydralazine PRN, metoprolol succinate 25 mg daily PHYSICAL EXAMINATION GENERAL: In no acute distress. NECK: Supple without JVD or thyromegaly. LUNGS: Breath sounds clear to auscultation bilaterally. Respiration equal and unlabored. No wheezes, rales or rhonchi. HEART: Regular rate and rhythm without murmurs, rubs or gallops. S1 and S2 heard. EXTREMITIES: Normal range of motion, no edema. No clubbing or cyanosis. Peripheral pulses intact. ASSESSMENT Right femur neck fracture s/p Right hip hemiarthroplasty on 04/24/2021. Coronary artery disease with previous four-vessel CABG and stents, details are not known Bilateral carotid artery disease Aortic aneurysm status post stent Hypertension, uncontrolled Chronic kidney disease Diabetic on diet controlled Short-term memory loss Chronic anemia Remote history of tobacco use Lower extremity pain with walking, may consider workup of possible PAD as an outpt PLAN Stop IV Hydralzine PRN Start amlodipine 5mg daily Patient not on ACEI/ARB due to kidney function Continue metoprolol succinate 25 mg daily 2-D echocardiogram pending Further recommendations to follow based upon clinical course Nurse practitioner note has been reviewed, I agree with documented findings and plan of care. Patient was seen and examined. Objective - Vital Signs Vital signs: Vital Signs Temp 97.8 F 04/25/21 04:29 Pulse 106 H 04/25/21 04:29 Resp 16 04/25/21 04:29 BP 133/74 04/25/21 04:29 Pulse Ox 100 04/25/21 04:29 Intake & Output 04/24/21 04/25/21 04/25/21 18:59 06:59 18:59 Intake Total 1851 1900 Output Total 80 200 Balance 1771 1700 Intake: IV 1251 Intake, IV Titration 600 1300 Amount Sodium Chloride 0.9% 1, 600 1200 000 ml @ 100 mls/hr IV . Q10H STEPHANIE Rx#:[id number] ceFAZolin 2 gm In Sodium 100 Chloride 0.9% 50 ml @ 100 mls/hr IVPB Q8H STEPHANIE Rx#: [id number] Oral 600 Output: Urine 200 Estimated Blood Loss 80 Other: Voiding Method Urinal Urinal Urinal Diaper Incontinent - Labs CBC & Chem 7: 04/25/21 06:09 04/25/21 06:09 Labs: Abnormal Lab Results - Last 24 Hours (Table) 04/24/21 04/25/21 04/25/21 Range/Units 06:44 06:09 06:09 WBC 12.1 H (3.8-10.6) k/uL RBC 2.59 L (4.30-5.90) m/uL Hgb 8.5 L (13.0-17.5) gm/dL Hct 26.8 L (39.0-53.0) % MCV 103.4 H (80.0-100.0) fL Neutrophils # 10.5 H (1.3-7.7) k/uL Lymphocytes # 0.8 L (1.0-4.8) k/uL Sodium 135 L (137-145) mmol/L Chloride 111 H (98-107) mmol/L Carbon Dioxide 19.1 L 17 L (20.0-27.5) mmol/L BUN 41.1 H 50 H (9.0-27.0) mg/dL Creatinine 2.3 H 2.70 H (0.6-1.5) mg/dL Est GFR (CKD-EPI)AfAm 29.1 L (60.0-200.0) Est GFR (CKD-EPI)NonAf 25.1 L (60.0-200.0) Glucose 111 H (74-99) mg/dL Calcium 8.5 L 8.1 L (8.7-10.3) mg/dL
[2021-04-25] MEDS: ENOXAPARIN 30 MG/0.3 ML SYRINGE SQ SCH (12:55)
[2021-04-25] MEDS: SENNOSIDES-DOCUSATE SODIUM 1 EACH TAB PO SCH (21:01)
[2021-04-26] MEDS: traMADol 50 MG TAB PO PRN (01:52)
[2021-04-26] MEDS: SODIUM CHLORIDE 0.9% 1,000 ML IV SCH ×2 (01:52→17:30)
--- NOTE | 2021-04-26 02:50 | P.PN ---
Subjective Progress Note Date: 04/25/21 Fall/Right hip fracture 85yo male patient with history of diabetes mellitus, hypertension, CAD/CT and chronic kidney disease, who arrives at our hospital as a transfer from [facility] for management of non-displaced right femoral neck fracture. Apparently the patient fell out of bed this morning, he complained of pain in his hip but was ambulatory however could tell that he was hurting so she took him to the hospital for evaluation where they found a nondisplaced fracture. Currently [facility] does not have orthopedic availability and the requested trans tyra to our facility. Patient's family members are at the bedside and reports patient having advanced coronary artery disease with multiple interventions; is not available on the phone Workup in ED reveals a WBC of 9.2, hemoglobin of 9.9, hematocrit 32.4 and platelet count of 324, sodium 134, potassium 4.6, BUN/creatinine 53/2.48 and glucose of 100 Right hip x-ray reveals slightly impacted femoral neck fracture Patient is seen and evaluated resting; patient is status post right hip hemiart hroplasty 04/25/2021 Patient is seen today currently sitting up in the chair with son at the bedside. Patient is status post right hemiarthroplasty with orthopedics and cardiology following. Patient continues with right hip pain and working with physical therapy. Patient is weak and will await therapy notes to discuss possible ECF. Son is agreeable. Patient with continued worsening kidney functions and maintained on IV NS at 100ml/hour. Will consult nephrology. Monitor blood pressure closely. Patient currently maintained on 2L 0f 02 via NC and denies shortness of breath. Will order chest xray and discussed with nurse about weaning FI02 as tolerated. Patient does not wear home 02. Patient denies chest pain or palpitations. Patient is afebrile. WBC mildly elevated most likely reactive. Repeat labs ordered. Review of systems: Constitutional: No reports of fatigue, fever, or chills Cardiovascular: No reports of chest pain or palpitations Respiratory: No reports of shortness of breath or cough GI: No reports of nausea, vomiting, or diarrhea, reports some gas and no bowel movement : No reports of dysuria or retention Neurovascular: reports of generalized weakness Active Medications Acetaminophen (Acetaminophen Tab 325 Mg Tab) 650 mg PO Q6HR PRN PRN Reason: Mild Pain or Fever > 100.5 Last Admin: 04/23/21 12:34 Dose: 650 mg Documented by: Hydrocodone Bitart/Acetaminophen (Hydrocodone/Apap 5-325mg 1 Each Tab) 1 each PO Q6HR PRN PRN Reason: Pain Last Admin: 04/25/21 10:11 Dose: 1 each Documented by: Ezetimibe (Ezetimibe 10 Mg Tab) 10 mg PO DAILY [facility] Last Admin: 04/25/21 07:58 Dose: 10 mg Documented by: Enoxaparin Sodium (Enoxaparin 30 Mg/0.3 Ml Syringe) 30 mg SQ DAILY [facility] Last Admin: 04/25/21 12:55 Dose: 30 mg Documented by: Fenofibrate (Fenofibrate 160 Mg Tab) 160 mg PO DAILY [facility] Last Admin: 04/25/21 07:58 Dose: 160 mg Documented by: Sodium Chloride (Saline 0.9%) 1,000 mls @ 100 mls/hr IV .Q10H [facility] Last Admin: 04/25/21 07:59 Dose: 100 mls/hr Documented by: Cefazolin Sodium 2 gm/ Sodium (Chloride) 50 mls @ 100 mls/hr IVPB Q8H [facility]; Protocol Last Admin: 04/25/21 12:55 Dose: 100 mls/hr Documented by: Magnesium Hydroxide (Magnesium Hydroxide 2,400 Mg/10 Ml Cup) 2,400 mg PO DAILY PRN PRN Reason: Constipation Metoprolol Succinate (Metoprolol Succinate (Er) 25 Mg Tab.Er.24h) 25 mg PO DAILY [facility] Last Admin: 04/25/21 07:58 Dose: 25 mg Documented by: Morphine Sulfate (Morphine Sulfate 4 Mg/Ml Syringe) 4 mg IVP Q6HR PRN PRN Reason: Pain Last Admin: 04/24/21 17:36 Dose: 4 mg Documented by: Morphine Sulfate (Morphine Sulfate 2 Mg/Ml Syringe) 1 mg IV Q3HR PRN PRN Reason: Pain Scale 6 to 10 Naloxone HCl (Naloxone 0.4 Mg/Ml 1 Ml Vial) 0.2 mg IV Q2M PRN PRN Reason: Opioid Reversal Ondansetron HCl (Ondansetron 4 Mg/2 Ml Vial) 4 mg IVP DAILY PRN PRN Reason: Nausea And Vomiting Last Admin: 04/24/21 14:46 Dose: 4 mg Documented by: Pantoprazole Sodium (Pantoprazole 40 Mg Tablet) 40 mg PO DAILY@0730 [facility] Last Admin: 04/25/21 07:58 Dose: 40 mg Documented by: Senna/Docusate Sodium (Sennosides-Docusate Sodium 1 Each Tab) 2 each PO HS [facility] Last Admin: 04/24/21 19:18 Dose: 2 each Documented by: Tramadol HCl (Tramadol 50 Mg Tab) 50 mg PO QID PRN PRN Reason: Moderate Pain Last Admin: 04/25/21 07:58 Dose: 50 mg Documented by: Physical exam: GENERAL: The patient is alert and oriented x3, elderly, thin built. HEENT: Pupils are round and equally reacting to light. EOMI. No scleral icterus. No conjunctival pallor. Normocephalic, atraumatic. No pharyngeal erythema. No thyromegaly. CARDIOVASCULAR: S1 and S2 present. No murmurs, rubs, or gallops. PULMONARY: Chest is clear to auscultation, no wheezing or crackles. ABDOMEN: Soft, nontender, nondistended, normoactive bowel sounds. No palpable organomegaly. MUSCULOSKELETAL: No joint swelling or deformity. EXTREMITIES: Pain/swelling/tenderness with movement of right lower extremity NEUROLOGICAL: Gross neurological examination did not reveal any focal deficits. diffuse weakness SKIN: No rashes. right surgical dressing is dry and intact Assessment: -Fall/right hip fracture status post right hip hemiarthroplasty -Hypertension; stable on metoprolol 50 mg daily, hold norvasc for now -acute kidney injury, likely prerenal. continue gentle IV hydration. Nephrology consulted, repeat am labs ordered. -Hyperlipidemia -Gastroesophageal reflux disease -History of CAD/CT in the past; patient denies any complaint of chest pain or shortness of breath; EKG is completed and reviewed; patient is currently on aspirin, beta blockers and statin therapy; detailed discussion with patient's family at bedside report a pretty advanced coronary artery disease with multiple interventions; cardiology following for presurgical clearance and testing -DVT prophylaxis; per orthopedic recommendations -full code Plan: Recommend to continue IV hydration and consult nephrology for worsening renal function Continue to monitor blood pressure and continue metoprolol and hold norvasc, monitor for hypotension post-op Repeat am labs ordered Wean FI02 as tolerated, currently on 2 L via NC. Patient does not wear 02 at home Chest xray shows no acute process Encourage incentive spirometer use as least 10 times per hour while awake Encourage oral intake especially protein PT/OT to follow and will consult case management for possible ECF Prognosis is guarded. The impression and plan of care has been dictated by Lazara Thomas, nurse practitioner as directed. MD Ángel I have performed a history and examination and MDM of this patient, discussed the same with the dictator, and agree with the dictator's assessment and plan as written ,documented as a scribe. Based on total visit time, I have performed more than 50% of the visit. Objective - Vital Signs Vital signs: Vital Signs Temp 97.8 F 04/25/21 04:29 Pulse 106 H 04/25/21 04:29 Resp 16 04/25/21 04:29 BP 133/74 04/25/21 04:29 Pulse Ox 100 04/25/21 04:29 Intake & Output 04/24/21 04/25/21 04/25/21 18:59 06:59 18:59 Intake Total 1851 1900 Output Total 80 200 Balance 1771 1700 Intake: IV 1251 Intake, IV Titration 600 1300 Amount Sodium Chloride 0.9% 1, 600 1200 000 ml @ 100 mls/hr IV . Q10H STEPHANIE Rx#:[id number] ceFAZolin 2 gm In Sodium 100 Chloride 0.9% 50 ml @ 100 mls/hr IVPB Q8H STEPHANIE Rx#: [id number] Oral 600 Output: Urine 200 Estimated Blood Loss 80 Other: Voiding Method Urinal Urinal - Labs CBC & Chem 7: 04/25/21 06:09 04/25/21 06:09 Labs: Abnormal Lab Results - Last 24 Hours (Table) 04/24/21 04/25/21 Range/Units 06:44 06:09 WBC 12.1 H (3.8-10.6) k/uL RBC 2.59 L (4.30-5.90) m/uL Hgb 8.5 L (13.0-17.5) gm/dL Hct 26.8 L (39.0-53.0) % MCV 103.4 H (80.0-100.0) fL Neutrophils # 10.5 H (1.3-7.7) k/uL Lymphocytes # 0.8 L (1.0-4.8) k/uL Carbon Dioxide 19.1 L (20.0-27.5) mmol/L BUN 41.1 H (9.0-27.0) mg/dL Creatinine 2.3 H (0.6-1.5) mg/dL Est GFR (CKD-EPI)AfAm 29.1 L (60.0-200.0) Est GFR (CKD-EPI)NonAf 25.1 L (60.0-200.0) Calcium 8.5 L (8.7-10.3) mg/dL
[2021-04-26 05:49] LABS: Basophils % (A) 0 %; Eosinophils # (A) 0.1 k/uL (0-0.7); Eosinophils % (A) 1 %; HCT 23.6 % (39.0-53.0); HGB 7.5 gm/dL (13.0-17.5); Hypochromasia Slight; Lymphocytes # (A) 0.8 k/uL (1.0-4.8); Lymphocytes % (A) 7 %; MCH 33.2 pg (25.0-35.0); MCHC 31.7 g/dL (31.0-37.0); MCV 104.6 fL (80.0-100.0); Macrocytosis Moderate; Mean Platelet Volume 7.8; Monocytes # (A) 0.6 k/uL (0-1.0); Monocytes % (A) 5 %; Neutrophils # (A) 9.9 k/uL (1.3-7.7); Neutrophils % (A) 86 %; Platelet Count 289 k/uL (150-450); RBC 2.25 m/uL (4.30-5.90); RDW 14.4 % (11.5-15.5); WBC 11.5 k/uL (3.8-10.6)
[2021-04-26 06:00] LABS: African American GFR (CKD) 24 (>60 ml/min/1.73 sqM); Anion Gap 7 mmol/L; Blood Urea Nitrogen 52 mg/dL (9-20); Calcium 7.8 mg/dL (8.4-10.2); Carbon Dioxide 17 mmol/L (22-30); Chloride 110 mmol/L (98-107); Glucose 93 mg/dL (74-99); Non-African American GFR(CKD) 21 (>60 ml/min/1.73 sqM); Potassium 4.2 mmol/L (3.5-5.1); Sodium 134 mmol/L (137-145)
[2021-04-26] MEDS: EZETIMIBE 10 MG TAB PO SCH (08:12)
[2021-04-26] MEDS: FENOFIBRATE 160 MG TAB PO SCH (08:12)
[2021-04-26] MEDS: METOPROLOL SUCCINATE (ER) 50 MG TAB.ER.24H PO SCH (08:15)
[2021-04-26] MEDS: HYDROcodone/APAP 5-325MG 1 EACH TAB PO PRN ×2 (08:20→14:07)
[2021-04-26] MEDS: PANTOPRAZOLE 40 MG TABLET PO SCH (09:15)
[2021-04-26] MEDS: ENOXAPARIN 30 MG/0.3 ML SYRINGE SQ SCH (09:15)
--- NOTE | 2021-04-26 10:44 | P.PN ---
Subjective This is an 85-year-old male with a past medical history of myocardial infarction 2004 status post 4 vessel CABG, myocardial infarction in 2018 while in [place] status post stents, carotid artery stenosis bilateral with surgery performed right sided, aortic aneurysm status post stent done at [facility], kidney stent, borderline diabetic on diet control, short-term memory loss, chronic anemia on iron, hypertension. He follows with cardiology out of [facility]. We have been consulted for surgical clearance. Patient was admitted on after a mechanical fall and was found to have a right femur neck fracture. He underwent Right hip hemiarthroplasty on 04/24/2021. Patient seen and examined at bedside, no acute distress. He denies any chest pain, shortness of breath, lightheadedness, dizziness. Appears to be euvolemic on exam. Blood pressure 152/68, heart rate 84, afebrile, oxygen saturation greater than 92% on room air. Telemetry reviewed patient in sinus mechanism heart rate trend in the 80s-90s. Patient was slightly hypotensive yesterday afternoon with a blood pressure 107/61 after given amlodipine. Amlodipine was discontinued 2-D echocardiogram revealed EF greater than 55%, mild aortic valve sclerosis, no regurgitation noted. He's currently maintained on metoprolol succinate 25 mg daily PHYSICAL EXAMINATION GENERAL: In no acute distress. NECK: Supple without JVD or thyromegaly. LUNGS: Breath sounds clear to auscultation bilaterally. Respiration equal and unlabored. No wheezes, rales or rhonchi. HEART: Regular rate and rhythm without murmurs, rubs or gallops. S1 and S2 heard. EXTREMITIES: Normal range of motion, no edema. No clubbing or cyanosis. Peripheral pulses intact. ASSESSMENT Right femur neck fracture s/p Right hip hemiarthroplasty on 04/24/2021. Coronary artery disease with previous four-vessel CABG and stents, details are not known Bilateral carotid artery disease Aortic aneurysm status post stent Hypertension, uncontrolled Chronic kidney disease Diabetic on diet controlled Short-term memory loss Chronic anemia Remote history of tobacco use Lower extremity pain with walking, may consider workup of possible PAD as an outpt PLAN Increase metoprolol succinate 50 mg daily 2-D echocardiogram revealed EF greater than 55%, mild aortic valve sclerosis, no regurgitation noted. Patient not on ACEI/ARB due to kidney function Further recommendations to follow based upon clinical course Nurse practitioner note has been reviewed, I agree with documented findings and plan of care. Patient was seen and examined. Objective - Vital Signs Vital signs: Vital Signs Temp 97.6 F 04/26/21 08:11 Pulse 84 04/26/21 08:11 Resp 20 04/26/21 08:09 BP 152/68 04/26/21 08:11 Pulse Ox 98 04/26/21 08:11 Intake & Output 04/25/21 04/26/21 04/26/21 18:59 06:59 18:59 Intake Total 170 Balance 170 Intake: Oral 170 Other: Voiding Method Urinal Urinal Urinal Diaper Diaper Diaper Incontinent Incontinent Incontinent # Voids 0 4 - Labs CBC & Chem 7: 04/26/21 05:18 04/26/21 05:18 Labs: Abnormal Lab Results - Last 24 Hours (Table) 04/25/21 04/26/21 04/26/21 Range/Units 06:09 05:18 05:18 WBC 11.5 H (3.8-10.6) k/uL RBC 2.25 L (4.30-5.90) m/uL Hgb 7.5 L (13.0-17.5) gm/dL Hct 23.6 L (39.0-53.0) % MCV 104.6 H (80.0-100.0) fL Neutrophils # 9.9 H (1.3-7.7) k/uL Lymphocytes # 0.8 L (1.0-4.8) k/uL Sodium 135 L 134 L (137-145) mmol/L Chloride 111 H 110 H (98-107) mmol/L Carbon Dioxide 17 L 17 L (22-30) mmol/L BUN 50 H 52 H (9-20) mg/dL Creatinine 2.70 H 2.69 H (0.66-1.25) mg/dL Glucose 111 H (74-99) mg/dL Calcium 8.1 L 7.8 L (8.4-10.2) mg/dL
--- NOTE | 2021-04-26 11:55 | P.NPCON ---
History of Present Illness - Reason for Consult acute renal failure - History of Present Illness Patient is a 85-year-old male with history of type 2 diabetes, hypertension, coronary artery disease, GA and chronic kidney disease, possibly stage IV with serum creatinine at 2.4 on initial admission. No previous labs available for comparison. Patient was transferred from the [facility] area after a fracture of the right femoral neck. He apparently fell out of his bed. Patient is status post right hip hemiarthroplasty on 04/24/2021. Systolic Blood pressure was lowest at 107 on 04/25. Voiding in the diaper/brief. No NSAIDs noted on his current med list. Currently maintained on IV fluids at 100 mL an hour. Review of Systems As per HPI Past Medical History Past Medical History: Diabetes Mellitus, Hypertension, Myocardial Infarction (GA), Renal Disease Additional Past Medical History / Comment(s): One kidney blocked, other one almost blocked; has stent from [id number]; carotid endarctectomy; aortic aneurysm with stent placement; Last Myocardial Infarction Date:: 2017 History of Any Multi-Drug Resistant Organisms: None Reported Past Surgical History: Heart Catheterization With Stent Additional Past Surgical History / Comment(s): per spouse, 4 stents placed, last in 2018 Past Anesthesia/Blood Transfusion Reactions: No Reported Reaction Date of Last Stent Placement:: 2017 Smoking Status: Former smoker Past Alcohol Use History: None Reported Past Drug Use History: None Reported Medications and Allergies Home Medications Medication Instructions Recorded Confirmed Type Aspirin EC [Ecotrin Low Dose] 81 mg PO DAILY 04/22/21 04/22/21 History Ezetimibe [Zetia] 10 mg PO DAILY 04/22/21 04/22/21 History Fenofibrate Nanocrystallized 145 mg PO DAILY 04/22/21 04/22/21 History [Fenofibrate] Iron 27mg 1 tab PO DAILY 04/22/21 04/22/21 History Pantoprazole Sodium [Protonix] 40 mg PO DAILY 04/22/21 04/22/21 History Metoprolol Tartrate [Lopressor] 25 mg PO DAILY 04/25/21 04/25/21 History Allergies Allergy/AdvReac Type Severity Reaction Status Date / Time bupropion [From Zyban] AdvReac Unknown Verified 04/22/21 22:24 codeine AdvReac headache Verified 04/23/21 15:14 erythromycin base AdvReac Unknown Verified 04/22/21 22:24 iodine AdvReac Abdominal Verified 04/22/21 22:24 Pain rosuvastatin [From Crestor] AdvReac Unknown Verified 04/22/21 22:24 Physical Exam Vitals: Vital Signs Temp Pulse Resp BP Pulse Ox 04/26/21 08:11 97.6 F 84 152/68 98 04/26/21 08:09 97.9 F 85 20 125/52 98 04/26/21 04:30 97.8 F 90 20 144/65 99 04/25/21 20:10 98.5 F 97 20 159/82 100 04/25/21 12:31 97.3 F L 90 18 107/61 98 Intake and Output 04/25/21 04/26/21 04/26/21 22:59 06:59 14:59 Intake Total 120 50 Balance 120 50 Intake: Oral 120 50 Other: Voiding Method Urinal Urinal Diaper Diaper Incontinent Incontinent # Voids 0 4 Patient is comfortable, awake not in any acute distress Examination of the heart S1 and S2 Examination lungs bilateral breath sounds are heard Abdomen is soft nontender obese Exertion lower extremity shows trace edema bilaterally. P[employer]ER exam grossly intact Results - Lab Results Most recent lab results Calcium 7.8 mg/dL (8.4-10.2) L 04/26/21 05:18 04/26/21 05:18 04/26/21 05:18 Assessment and Plan Assessment: 1. Acute kidney injury, most likely ATN, nonoliguric. Rule out urine retent ion. Check bladder scan postvoid. Check urine analysis Check ultrasound of the kidneys 2. Chronic kidney disease, possibly stage IV however previous labs not available for comparison 3. Anemia postoperatively check iron profile 4. Status post fall and fracture of right femoral neck status post right hip hemiarthroplasty 5. Metabolic acidosis associated with acute kidney injury and IV fluids 6. Hypertension, blood pressure had been high possibly related to pain. Currently not significantly elevated Plan: Check urine analysis Check bladder scan and rule out urine retention Check ultrasound of the kidneys Continue with IV fluids Repeat labs in a.m. Continue to avoid nephrotoxic agents. Try to obtain previous labs for baseline renal function
--- NOTE | 2021-04-26 12:23 | P.PN ---
Subjective Progress Note Date: 04/26/21 Principal diagnosis: Status post right hip hemiarthroplasty Patient was evaluated today at bedside. He appears comfortable and resting in bed. He states that he has generalized discomfort of the right lower extremity, mainly with movement. Currently denies any headaches, lightheadedness, chest pain, shortness of breath. Objective - Vital Signs Vital signs: Vital Signs Temp 97.6 F 04/26/21 08:11 Pulse 84 04/26/21 08:11 Resp 20 04/26/21 08:09 BP 152/68 04/26/21 08:11 Pulse Ox 98 04/26/21 08:11 Intake & Output 04/25/21 04/26/21 04/26/21 18:59 06:59 18:59 Intake Total 170 Balance 170 Intake: Oral 170 Other: Voiding Method Urinal Urinal Urinal Diaper Diaper Diaper Incontinent Incontinent Incontinent # Voids 0 4 - Exam Right lower extremity: Foam dressing is in good position and condition. There is minimal soft tissue swelling and ecchymosis surrounding the medial and lateral aspects of the incisi on. Calf is soft, no tenderness with palpation. Plantar flexion, dorsiflexion, EHL, FHL are intact. Sensory exam to light touch throughout the extremity is intact, dorsal pedis pulses 2+. - Labs CBC & Chem 7: 04/26/21 05:18 04/26/21 05:18 Labs: Abnormal Lab Results - Last 24 Hours (Table) 04/26/21 04/26/21 Range/Units 05:18 05:18 WBC 11.5 H (3.8-10.6) k/uL RBC 2.25 L (4.30-5.90) m/uL Hgb 7.5 L (13.0-17.5) gm/dL Hct 23.6 L (39.0-53.0) % MCV 104.6 H (80.0-100.0) fL Neutrophils # 9.9 H (1.3-7.7) k/uL Lymphocytes # 0.8 L (1.0-4.8) k/uL Sodium 134 L (137-145) mmol/L Chloride 110 H (98-107) mmol/L Carbon Dioxide 17 L (22-30) mmol/L BUN 52 H (9-20) mg/dL Creatinine 2.69 H (0.66-1.25) mg/dL Calcium 7.8 L (8.4-10.2) mg/dL Assessment and Plan Assessment: Postoperative day #2 status post right hip hemiarthroplasty Plan: Pain control, continue low-dose oral medication DVT prophylaxis, continue subcu medication Wound care, monitor dressing, ok to change after 5 days Weight-bear as tolerated with walker PT/OT evaluation Medical recommendations Discharge planning: Orthopedically patient remained stable for discharge to subacute rehab Time with Patient: Less than 30
--- NOTE | 2021-04-26 12:31 | ECHOF ---
Referral Reason:LVF MEASUREMENTS -------- HEIGHT: 182.9 cm WEIGHT: 65.8 kg BP: RVIDd: 2.9 cm (< 3.3) IVSd: 1.0 cm (0.6 - 1.1) LVIDd: 4.7 cm (3.9 - 5.3) LVPWd: 1.6 cm (0.6 - 1.1) IVSs: 1.4 cm LVIDs: 3.4 cm LVPWs: 1.7 cm LA Diam: 3.8 cm (2.7 - 3.8) Ao Diam: 3.7 cm (2.0 - 3.7) AV Cusp: 0.9 cm (1.5 - 2.6) LA Diam: 4.1 cm (2.7 - 3.8) MV EXCURSION: 12.148 mm (> 18.000) MV EF SLOPE: 49 mm/s (70 - 150) EPSS: 0.8 cm MV E Hayden: 0.45 m/s MV DecT: 338 ms MV A Hayden: 0.65 m/s MV E/A Ratio: 0.70 RAP: 5.00 mmHg RVSP: 16.18 mmHg FINDINGS -------- Sinus rhythm. Pt has hip fx. LV size, wall thickness and systolic function are normal, with an EF greater than 55%. The left maciel tricular size is normal. The right ventricle is normal in size. There is mild aortic valve sclerosis. There is no evidence of aortic regurgitation. Mild mitral regurgitation is present. No regurgitation noted Right ventricular systolic pressure is normal at < 35 mmHg. There is no pulmonic regurgitation present. Echo free space indicative of a pericardial fat pad. CONCLUSIONS -------- 1. Pt has hip fx. 2. LV size, wall thickness and systolic function are normal, with an EF greater than 55%. 3. The left ventricular size is normal. 4. The right ventricle is normal in size. 5. There is mild aortic valve sclerosis. 6. No regurgitation noted 7. Echo free space indicative of a pericardial fat pad. DOCK GRADER: Charity Pratt RDCS
--- NOTE | 2021-04-26 13:02 | US ---
EXAMINATION TYPE: US kidneys/renal and bladder DATE OF EXAM: 04/26/2021 COMPARISON: NONE CLINICAL HISTORY: RF. Hip fracture. Patient scanned in chair. EXAM MEASUREMENTS: Right Kidney: 8.2 x 4.3 x 4.6 cm Left Kidney: 9.8 x 4.4 x 5.0 cm Right Kidney: Multiple cysts seen through kidney. Largest upper pole lateral = 3.6 x 3.0 x 3.2 cm Left Kidney: Limited visualization. Cysts seen, largest = 3.8 x 2.65 x 3.4 cm mid kidney. Bladder: possible debris posterior seen. Echogenic focus seen with twinkling artifact = 0.6 cm Bilateral Jets seen Suboptimal study due to patient's limited mobility. Increased cortical echogenicity with scattered th in-walled cysts of varying size and shape are scattered throughout both kidneys. No hydronephrosis is seen bilaterally. Dependent density suggestive pre in the bladder with visualized bilateral distal u reter jets. IMPRESSION: Suboptimal study. Evidence of chronic medical renal disease. No hydronephrosis seen bilat erally. Possible debris or pus in the bladder. Correlate clinically.
[2021-04-26 15:50] LABS: Appearance,Urine Turbid (Clear); Bacteria,Urine Occasional /hpf; Bilirubin,Urine Negative (Negative); Blood,Urine Large (Negative); Color,Urine Yellow; Glucose,Urine (UA) Negative (Negative); Ketones,Urine Trace (Negative); Leukocyte Esterase,Urine Large (Negative); Mucus,Urine Rare /hpf; Nitrite,Urine Negative (Negative); PH, Urine 5.5 (5.0-8.0); Protein,Urine 1+ (Negative); RBC,Urine 101 /hpf (0-5); Specific Gravity,Urine 1.019 (1.001-1.035); Urobilinogen,Urine <2.0 mg/dL (<2.0); WBC,Urine >182 /hpf (0-5)
--- NOTE | 2021-04-26 15:55 | P.PN ---
Subjective Progress Note Date: 04/26/21 Fall/Right hip fracture 85yo male patient with history of diabetes mellitus, hypertension, CAD/IA and chronic kidney disease, who arrives at our hospital as a transfer from [facility] for management of non-displaced right femoral neck fracture. Apparently the patient fell out of bed this morning, he complained of pain in his hip but was ambulatory however could tell that he was hurting so she took him to the hospital for evaluation where they found a nondisplaced fracture. Currently [facility] not have orthopedic availability and the requested trans tyra to our facility. Patient's family members are at the bedside and reports patient having advanced coronary artery disease with multiple interventions; is not available on the phone Workup in ED reveals a WBC of 9.2, hemoglobin of 9.9, hematocrit 32.4 and platelet count of 324, sodium 134, potassium 4.6, BUN/creatinine 53/2.48 and glucose of 100 Right hip x-ray reveals slightly impacted femoral neck fracture Patient is seen and evaluated resting; patient is status post right hip hemiart hroplasty 04/25/2021 Patient is seen today currently sitting up in the chair with son at the bedside. Patient is status post right hemiarthroplasty with orthopedics and cardiology following. Patient continues with right hip pain and working with physical therapy. Patient is weak and will await therapy notes to discuss possible ECF. Son is agreeable. Patient with continued worsening kidney functions and maintained on IV NS at 100ml/hour. Will consult nephrology. Monitor blood pressure closely. Patient currently maintained on 2L 0f 02 via NC and denies shortness of breath. Will order chest xray and discussed with nurse about weaning FI02 as tolerated. Patient does not wear home 02. Patient denies chest pain or palpitations. Patient is afebrile. WBC mildly elevated most likely reactive. Repeat labs ordered. 04/26/2021 Patient is seen in follow-up today and is status post right hemiarthroplasty for right femoral neck fracture and orthopedics following closely. Creatinine continues to be elevated and slightly improved only a 2.69 and was 2.70 yesterday and nephrology consulted and pending. Will continue gentle IV hydration. Encouraged incentive spirometer and cussed with nursing staff about weaning FiO2 as tolerated. Monitor closely for urinary retention. Patient continues with right hip pain and orthopedics following. Continue with restrictions per orthopedic recommendations and PT to follow daily. Plan is for possible Karol swing bed on discharge once stabilized. Patient denies chest pain or shortness of breath. Patient was maintained on 2 L although does not we ar oxygen and this was removed and patient maintaining oxygen saturations of 98- 100% on room air. Bladder ultrasound ordered. Review of systems: Constitutional: No reports of fatigue, fever, or chills Cardiovascular: No reports of chest pain or palpitations Respiratory: No reports of shortness of breath or cough GI: No reports of nausea, vomiting, or diarrhea, reports some gas and no bowel movement : No reports of dysuria or retention Neurovascular: reports of generalized weakness Active Medications Acetaminophen (Acetaminophen Tab 325 Mg Tab) 650 mg PO Q6HR PRN PRN Reason: Mild Pain or Fever > 100.5 Last Admin: 04/23/21 12:34 Dose: 650 mg Documented by: Hydrocodone Bitart/Acetaminophen (Hydrocodone/Apap 5-325mg 1 Each Tab) 1 each PO Q6HR PRN PRN Reason: Pain Last Admin: 04/26/21 08:20 Dose: 1 each Documented by: Ezetimibe (Ezetimibe 10 Mg Tab) 10 mg PO DAILY [facility] Last Admin: 04/26/21 08:12 Dose: 10 mg Documented by: Enoxaparin Sodium (Enoxaparin 30 Mg/0.3 Ml Syringe) 30 mg SQ DAILY [facility] Last Admin: 04/26/21 09:15 Dose: 30 mg Documented by: Fenofibrate (Fenofibrate 160 Mg Tab) 160 mg PO DAILY [facility] Last Admin: 04/26/21 08:12 Dose: 160 mg Documented by: Sodium Chloride (Saline 0.9%) 1,000 mls @ 100 mls/hr IV .Q10H [facility] Last Admin: 04/26/21 01:52 Dose: 100 mls/hr Documented by: Cefazolin Sodium 2 gm/ Sodium (Chloride) 50 mls @ 100 mls/hr IVPB Q8H [facility]; Protocol Last Admin: 04/26/21 04:40 Dose: 100 mls/hr Documented by: Magnesium Hydroxide (Magnesium Hydroxide 2,400 Mg/10 Ml Cup) 2,400 mg PO DAILY PRN PRN Reason: Constipation Metoprolol Succinate (Metoprolol Succinate (Er) 50 Mg Tab.Er.24h) 50 mg PO DAILY [facility] Last Admin: 04/26/21 08:15 Dose: 50 mg Documented by: Morphine Sulfate (Morphine Sulfate 4 Mg/Ml Syringe) 4 mg IVP Q6HR PRN PRN Reason: Pain Last Admin: 04/24/21 17:36 Dose: 4 mg Documented by: Morphine Sulfate (Morphine Sulfate 2 Mg/Ml Syringe) 1 mg IV Q3HR PRN PRN Reason: Pain Scale 6 to 10 Naloxone HCl (Naloxone 0.4 Mg/Ml 1 Ml Vial) 0.2 mg IV Q2M PRN PRN Reason: Opioid Reversal Ondansetron HCl (Ondansetron 4 Mg/2 Ml Vial) 4 mg IVP DAILY PRN PRN Reason: Nausea And Vomiting Last Admin: 04/24/21 14:46 Dose: 4 mg Documented by: Pantoprazole Sodium (Pantoprazole 40 Mg Tablet) 40 mg PO DAILY@0730 [facility] Last Admin: 04/26/21 09:15 Dose: 40 mg Documented by: Senna/Docusate Sodium (Sennosides-Docusate Sodium 1 Each Tab) 2 each PO HS [facility] Last Admin: 04/25/21 21:01 Dose: 2 each Documented by: Tramadol HCl (Tramadol 50 Mg Tab) 50 mg PO QID PRN PRN Reason: Moderate Pain Last Admin: 04/26/21 01:52 Dose: 50 mg Documented by: Physical exam: GENERAL: The patient is asleep although easily arousable, alert and oriented x3, elderly, thin built. HEENT: Pupils are round and equally reacting to light. EOMI. No scleral icterus. No conjunctival pallor. Normocephalic, atraumatic. No pharyngeal erythema. No thyromegaly. CARDIOVASCULAR: S1 and S2 present. No murmurs, rubs, or gallops. PULMONARY: Chest is clear to auscultation, no wheezing or crackles. ABDOMEN: Soft, nontender, nondistended, normoactive bowel sounds. No palpable organomegaly. MUSCULOSKELETAL: No joint swelling or deformity. EXTREMITIES: Pain/swelling/tenderness with movement of right lower extremity NEUROLOGICAL: Gross neurological examination did not reveal any focal deficits. diffuse weakness SKIN: No rashes. right surgical dressing is dry and intact Assessment: -Fall/right hip fracture status post right hip hemiarthroplasty -Hypertension; stable on metoprolol 50 mg daily, hold norvasc for now -acute kidney injury, most likely acute tubular necrosis. continue gentle IV hydration. Nephrology following and ordered bladder ultrasound and continued scans and monitor closely for retention, repeat am labs ordered. Per son at the bedside patient chronically has elevated kidney functions. -Hyperlipidemia -Gastroesophageal reflux disease -History of CAD/IA in the past; patient denies any complaint of chest pain or shortness of breath; EKG is completed and reviewed; patient is currently on aspirin, beta blockers and statin therapy; detailed discussion with patient's family at bedside report a pretty advanced coronary artery disease with multiple interventions; cardiology following -DVT prophylaxis; per orthopedic recommendations -full code Plan: Recommend to continue IV hydration and nephrology for worsening renal function, attempt to obtain records from previous hospital regarding previous kidney function testing. Renal ultrasound ordered and patient is to continue with bladder scanning and monitoring closely for retention Continue to monitor blood pressure and continue metoprolol and hold norvasc, monitor for hypotension post-op Repeat am labs ordered Wean FI02 as tolerated, currently on room air at 98-100% Chest xray shows no acute process Encourage incentive spirometer use as least 10 times per hour while awake Encourage oral intake especially protein PT/OT to follow and will case management following and working on acceptance at [facility] Prognosis is guarded. The impression and plan of care has been dictated by Lazara Thomas, nurse practitioner as directed. MD Ángel I have performed a history and examination and MDM of this patient, discussed the same with the dictator, and agree with the dictator's assessment and plan as written ,documented as a scribe. Based on total visit time, I have performed more than 50% of the visit. Objective - Vital Signs Vital signs: Vital Signs Temp 97.6 F 04/26/21 08:11 Pulse 84 04/26/21 08:11 Resp 20 04/26/21 08:09 BP 152/68 04/26/21 08:11 Pulse Ox 98 04/26/21 08:11 Intake & Output 04/25/21 04/26/21 04/26/21 18:59 06:59 18:59 Intake Total 170 Balance 170 Intake: Oral 170 Other: Voiding Method Urinal Urinal Urinal Diaper Diaper Diaper Incontinent Incontinent Incontinent # Voids 0 4 - Labs CBC & Chem 7: 04/26/21 05:18 04/26/21 05:18 Labs: Abnormal Lab Results - Last 24 Hours (Table) 04/25/21 04/26/21 04/26/21 Range/Units 06:09 05:18 05:18 WBC 11.5 H (3.8-10.6) k/uL RBC 2.25 L (4.30-5.90) m/uL Hgb 7.5 L (13.0-17.5) gm/dL Hct 23.6 L (39.0-53.0) % MCV 104.6 H (80.0-100.0) fL Neutrophils # 9.9 H (1.3-7.7) k/uL Lymphocytes # 0.8 L (1.0-4.8) k/uL Sodium 135 L 134 L (137-145) mmol/L Chloride 111 H 110 H (98-107) mmol/L Carbon Dioxide 17 L 17 L (22-30) mmol/L BUN 50 H 52 H (9-20) mg/dL Creatinine 2.70 H 2.69 H (0.66-1.25) mg/dL Glucose 111 H (74-99) mg/dL Calcium 8.1 L 7.8 L (8.4-10.2) mg/dL
[2021-04-26 19:50] LABS: % Iron Saturation 6.32 (15.00-50.00)
[2021-04-26] MEDS: SENNOSIDES-DOCUSATE SODIUM 1 EACH TAB PO SCH (21:35)
[2021-04-27] MEDS: SODIUM CHLORIDE 0.9% 1,000 ML IV SCH ×2 (03:23→11:29)
[2021-04-27] MEDS: HYDROcodone/APAP 5-325MG 1 EACH TAB PO PRN ×2 (05:20→11:30)
[2021-04-27] MEDS: PANTOPRAZOLE 40 MG TABLET PO SCH (08:20)
--- NOTE | 2021-04-27 10:05 | P.PN ---
Subjective Progress Note Date: 04/27/21 Principal diagnosis: Status post right hip hemiarthroplasty Patient was evaluated today at bedside. He appears comfortable and resting in bed. He states that he has generalized discomfort of the right lower extremity, mainly with movement. Currently denies any headaches, lightheadedness, chest pain, shortness of breath. Objective - Vital Signs Vital signs: Vital Signs Temp 97.7 F 04/27/21 09:04 Pulse 81 04/27/21 09:04 Resp 12 04/27/21 09:04 BP 160/86 04/27/21 09:04 Pulse Ox 94 L 04/27/21 09:04 Intake & Output 04/26/21 04/27/21 04/27/21 18:59 06:59 18:59 Intake Total 1250 1690 Output Total 194 Balance 1056 1690 Intake: Intake, IV Titration 1250 1250 Amount Sodium Chloride 0.9% 1, 1200 1200 000 ml @ 100 mls/hr IV . Q10H [facility] Rx#:[id number] ceFAZolin 2 gm In Sodium 50 50 Chloride 0.9% 50 ml @ 100 mls/hr IVPB Q8H [facility] Rx#: [id number] Oral 440 Output: Post Void Residual 194 Other: Voiding Method Urinal Diaper Diaper Diaper Incontinent Incontinent Incontinent # Voids 4 - Exam Right lower extremity: Foam dressing is in good position and condition. There is minimal soft tissue swelling and ecchymosis surrounding the medial and lateral aspects of the incision. Calf is soft, no tenderness with palpation. Plantar flexion, dorsiflexion, EHL, FHL are intact. Sensory exam to light touch throughout the extremity is intact, dorsal pedis pulses 2+. - Labs CBC & Chem 7: 04/26/21 05:18 04/26/21 05:18 Labs: Abnormal Lab Results - Last 24 Hours (Table) 04/26/21 04/26/21 Range/Units 05:18 15:30 Iron 15 L (65-175) ug/dL % Saturation 6.32 L (15.00-50.00) Transferrin 173.0 L (204.0-354.0) mg/dL Urine Protein 1+ H (Negative) Urine Ketones Trace H (Negative) Urine Blood Large H (Negative) Ur Leukocyte Esterase Large H (Negative) Urine RBC 101 H (0-5) /hpf Urine WBC >182 H (0-5) /hpf Urine WBC Clumps Many H (None) /hpf Urine Bacteria Occasional H (None) /hpf Urine Mucus Rare H (None) /hpf Assessment and Plan Assessment: Postoperative day #3 status post right hip hemiarthroplasty Plan: Pain control, discharging on oral medication DVT prophylaxis, discharging on lovenox for 25 days Wound care, discussed with nursing to change opifoam today prior to discharge Weight-bear as tolerated with walker PT/OT evaluation Medical recommendations Discharge planning: Orthopedically patient remains stable for discharge to subacute rehab Time with Patient: Less than 30
[2021-04-27] MEDS: EZETIMIBE 10 MG TAB PO SCH (10:11)
[2021-04-27] MEDS: METOPROLOL SUCCINATE (ER) 50 MG TAB.ER.24H PO SCH (10:12)
[2021-04-27] MEDS: FENOFIBRATE 160 MG TAB PO SCH (10:12)
[2021-04-27] MEDS: ENOXAPARIN 30 MG/0.3 ML SYRINGE SQ SCH (10:17)
[2021-04-27 10:52] LABS: African American GFR (CKD) 28 (>60 ml/min/1.73 sqM); Anion Gap 7 mmol/L; Blood Urea Nitrogen 47 mg/dL (9-20); Calcium 7.9 mg/dL (8.4-10.2); Carbon Dioxide 16 mmol/L (22-30); Chloride 111 mmol/L (98-107); Glucose 137 mg/dL (74-99); Non-African American GFR(CKD) 24 (>60 ml/min/1.73 sqM); Potassium 4.1 mmol/L (3.5-5.1); Sodium 134 mmol/L (137-145)
--- NOTE | 2021-04-27 12:03 | P.PN ---
Subjective Patient is seen for follow-up for acute kidney injury mostly associated with low blood pressure. It appears that patient does have underlying chronic kidney disease with baseline creatinine about 2.3 mg/dL. Serum creatinine has improved to 2.3 today from 2.72 days ago. Patient has been voiding in diapers/briefs. Swallowing test being done at bedside. Patient appears to have trouble with thin liquids. Objective - Vital Signs Vital signs: Vital Signs Temp 97.7 F 04/27/21 09:04 Pulse 81 04/27/21 09:04 Resp 12 04/27/21 09:04 BP 160/86 04/27/21 09:04 Pulse Ox 94 L 04/27/21 09:04 Intake & Output 04/26/21 04/27/21 04/27/21 18:59 06:59 18:59 Intake Total 1250 1690 Output Total 194 Balance 1056 1690 Intake: Intake, IV Titration 1250 1250 Amount Sodium Chloride 0.9% 1, 1200 1200 000 ml @ 100 mls/hr IV . Q10H [facility] Rx#:[id number] ceFAZolin 2 gm In Sodium 50 50 Chloride 0.9% 50 ml @ 100 mls/hr IVPB Q8H [facility] Rx#: [id number] Oral 440 Output: Post Void Residual 194 Other: Voiding Method Urinal Diaper Urinal Diaper Incontinent Diaper Incontinent # Voids 4 - Exam Awake comfortable. Not in any acute distress Examination lower extremity shows no evidence of edema NON ACOUSTIC OPERATOR exam grossly intact Patient appears euvolemic - Labs CBC & Chem 7: 04/26/21 05:18 04/27/21 10:06 Labs: Abnormal Lab Results - Last 24 Hours (Table) 04/26/21 04/26/21 04/27/21 Range/Units 05:18 15:30 10:06 Sodium 134 L (137-145) mmol/L Chloride 111 H (98-107) mmol/L Carbon Dioxide 16 L (22-30) mmol/L BUN 47 H (9-20) mg/dL Creatinine 2.38 H (0.66-1.25) mg/dL Glucose 137 H (74-99) mg/dL Calcium 7.9 L (8.4-10.2) mg/dL Iron 15 L (65-175) ug/dL % Saturation 6.32 L (15.00-50.00) Transferrin 173.0 L (204.0-354.0) mg/dL Urine Protein 1+ H (Negative) Urine Ketones Trace H (Negative) Urine Blood Large H (Negative) Ur Leukocyte Esterase Large H (Negative) Urine RBC 101 H (0-5) /hpf Urine WBC >182 H (0-5) /hpf Urine WBC Clumps Many H (None) /hpf Urine Bacteria Occasional H (None) /hpf Urine Mucus Rare H (None) /hpf Assessment and Plan Assessment: 1. Acute kidney injury, most likely ATN, nonoliguric. No urine retention. Renal function improved. No obstruction noted on ultrasound. UA shows proteinuria and significant pyuria 2. Chronic kidney disease, possibly stage IV however previous labs not available for comparison 3. Anemia postoperatively check iron profile 4. Status post fall and fracture of right femoral neck status post right hip hemiarthroplasty 5. Metabolic acidosis associated with acute kidney injury and IV fluids 6. Hypertension, blood pressure had been high possibly related to pain. Currently not significantly elevated Plan: Continue to encourage increase oral intake Check urine culture
[2021-04-27 12:15] VITALS: BP 138/68; PULSE 85; RESP 22; TEMP 97.3
--- NOTE | 2021-04-27 12:33 | P.PN ---
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 He follows with cardiology out of [facility]. We have been consulted for surgical clearance. Patient was admitted on after a mechanical fall and was found to have a right femur neck fracture. He underwent Right hip hemiarthroplasty on 04/24/2021. Patient seen and examined at bedside, no acute distress. He denies any chest pain, shortness of breath, lightheadedness, dizziness. Appears to be euvolemic on exam. Blood pressure 138/68, heart rate 85, afebrile, oxygen saturation greater than 94% on room air. Telemetry reviewed patient in sinus mechanism heart rate trend in the 80s-90s. 2-D echocardiogram revealed EF greater than 55%, mild aortic valve sclerosis, no regurgitation noted. He's currently maintained on metoprolol succinate 50 mg daily PHYSICAL EXAMINATION GENERAL: In no acute distress. NECK: Supple without JVD or thyromegaly. LUNGS: Breath sounds clear to auscultation bilaterally. Respiration equal and unlabored. No wheezes, rales or rhonchi. HEART: Regular rate and rhythm without murmurs, rubs or gallops. S1 and S2 heard. EXTREMITIES: Normal range of motion, no edema. No clubbing or cyanosis. Peripheral pulses intact. ASSESSMENT Right femur neck fracture s/p Right hip hemiarthroplasty on 04/24/2021. Coronary artery disease with previous four-vessel CABG and stents, details are not known Bilateral carotid artery disease Aortic aneurysm status post stent Hypertension, uncontrolled Chronic kidney disease Diabetic on diet controlled Short-term memory loss Chronic anemia Remote history of tobacco use Lower extremity pain with walking, may consider workup of possible PAD as an outpt PLAN Continue metoprolol succinate 50 mg daily 2-D echocardiogram revealed EF greater than 55%, mild aortic valve sclerosis, no regurgitation noted. Patient not on ACEI/ARB due to kidney function From a cardiology perspective, no changes at this time. Plan for patient to be discharged to subacute rehab when cleared. Nurse practitioner note has been reviewed, I agree with documented findings and plan of care. Patient was seen and examined. Objective - Vital Signs Vital signs: Vital Signs Temp 97.3 F L 04/27/21 12:14 Pulse 85 04/27/21 12:14 Resp 22 04/27/21 12:14 BP 138/68 04/27/21 12:14 Pulse Ox 94 L 04/27/21 12:14 Intake & Output 04/26/21 04/27/21 04/27/21 18:59 06:59 18:59 Intake Total 1250 1690 Output Total 194 Balance 1056 1690 Intake: Intake, IV Titration 1250 1250 Amount Sodium Chloride 0.9% 1, 1200 1200 000 ml @ 100 mls/hr IV . Q10H [facility] Rx#:[id number] ceFAZolin 2 gm In Sodium 50 50 Chloride 0.9% 50 ml @ 100 mls/hr IVPB Q8H [facility] Rx#: [id number] Oral 440 Output: Post Void Residual 194 Other: Voiding Method Urinal Diaper Urinal Diaper Incontinent Diaper Incontinent # Voids 4 - Labs CBC & Chem 7: 04/26/21 05:18 04/27/21 10:06 Labs: Abnormal Lab Results - Last 24 Hours (Table) 04/26/21 04/26/21 04/27/21 Range/Units 05:18 15:30 10:06 Sodium 134 L (137-145) mmol/L Chloride 111 H (98-107) mmol/L Carbon Dioxide 16 L (22-30) mmol/L BUN 47 H (9-20) mg/dL Creatinine 2.38 H (0.66-1.25) mg/dL Glucose 137 H (74-99) mg/dL Calcium 7.9 L (8.4-10.2) mg/dL Iron 15 L (65-175) ug/dL % Saturation 6.32 L (15.00-50.00) Transferrin 173.0 L (204.0-354.0) mg/dL Urine Protein 1+ H (Negative) Urine Ketones Trace H (Negative) Urine Blood Large H (Negative) Ur Leukocyte Esterase Large H (Negative) Urine RBC 101 H (0-5) /hpf Urine WBC >182 H (0-5) /hpf Urine WBC Clumps Many H (None) /hpf Urine Bacteria Occasional H (None) /hpf Urine Mucus Rare H (None) /hpf
[2021-04-27 12:38] LABS: HGB 7.9 gm/dL (13.0-17.5); Hypochromasia Marked; MCH 32.4 pg (25.0-35.0); MCHC 30.3 g/dL (31.0-37.0); MCV 107.1 fL (80.0-100.0); Macrocytosis Moderate; Mean Platelet Volume 8.3; Platelet Count 386 k/uL (150-450); RBC 2.43 m/uL (4.30-5.90); RDW 14.7 % (11.5-15.5); WBC 14.5 k/uL (3.8-10.6)
--- NOTE | 2021-04-27 13:43 | FL ---
EXAMINATION TYPE: FL barium swallow w video DATE OF EXAM: 04/27/2021 MODIFIED SWALLOW / DEGLUTITION STUDY CLINICAL HISTORY: Rule out aspiration TECHNIQUE: Deglutition study is performed utilizing thin liquid barium, honey and nectar thick liqui d barium, barium thick applesauce, and barium coated cracker. COMPARISON: None. FINDINGS: Cornelio silent laryngeal aspiration was noted with the thin liquid consistency with questiona ble transient penetration with honey and nectar consistencies, possibly masked by the aspirated thin liquid. No significant laryngeal aspiration or penetration with the pudding consistency or the hard s olid consistency. Total fluoroscopic time 1 minute and 56 seconds. No images on PACS. IMPRESSION: Evident aspiration with thin liquid consistency as described above. Please refer to damir fraser therapist notes for further details.
--- NOTE | 2021-04-27 14:16 | P.DS ---
Providers Date of admission: 04/22/21 21:57 Expected date of discharge: 04/27/21 Attending physician: Randy Harrell Consults: 04/22/21 21:57 Consult Physician Urgent Consulting Provider: Sean Fontanez Consult Reason/Comments: fracture management Do you want consulting provider notified?: Already Contacted 04/23/21 18:21 Consult Physician Routine Consulting Provider: Aramis Dueñas Consult Reason/Comments: Cardiac clear Do you want consulting provider notified?: Yes 04/25/21 17:46 Consult Physician Urgent Consulting Provider: Estelle Dhaliwal Consult Reason/Comments: luz Do you want consulting provider notified?: Yes Primary care physician: Hernan Betancur Hospital Course: final diagnosis -Fall/right hip fracture status post right hip hemiarthroplasty -Hypertension -acute kidney injury, most likely acute tubular necrosis. -acute urinary tract infection, present on admission -Hyperlipidemia -Gastroesophageal reflux disease -History of CAD/[place] in the past -DVT prophylaxis -full code Discharge disposition Patient is being discharged in a stable condition with guarded prognosis to [facility] for continued PT/OT therapy. Patient will follow-up with his primary care provider in the outpatient setting upon discharge. patient is to also follow-up with his metal bench patternmaker in the outpatient setting in 1-2 weeks. Patient will continue on oral Ceftin twice daily for the next one week. Recommend repeat labs to continue to monitor kidney functions and CBC. she is also to follow-up with orthopedics in the outpatient setting in the next 3 weeks. Total time taken is greater than 35 minutes. hospital course This is a 64-year-old male who was recently admitted with a transfer from [facility] for further management of a nondisplaced right femoral neck fracture and is status post right hip hemiarthroplastywith orthopedics following closely. Patient will need outpatient follow-up with ortho in 2-3 weeks. patient's kidney functions are elevated although this is found to be chronic and does have a metal bench patternmaker in the outpatient setting. Discussed with family at the bedside to follow-up with nephrology in the next 1-2 weeks. Patient also fo und to have a urinary tract infection, present on admission and was started on IV ceftriaxone and will continue on oral Ceftin 500 mg twice daily for the next 1 week and then may discontinue. Patient was seen and evaluated by speech therapy for possible aspiration and modified barium swallow confirms patient is silently aspirating and will be continued on dysphasia 3 chopped diet with aspiration precautions and head of the bed elevated 30-45 at all times and honey thickened liquids with no straws. Currently no reports of chest pain, shortness of breath, or palpitations. Patient is afebrile. No reports of nausea or vomiting and patient is tolerating diet. Patient will be going to [facility] bed today. guarded prognosis Physical exam: GENERAL: The patient is asleep although easily arousable, alert and oriented x3, elderly, thin built. HEENT: Pupils are round and equally reacting to light. EOMI. No scleral icterus. No conjunctival pallor. Normocephalic, atraumatic. No pharyngeal erythema. No thyromegaly. CARDIOVASCULAR: S1 and S2 present. No murmurs, rubs, or gallops. PULMONARY: Chest is clear to auscultation, no wheezing or crackles. ABDOMEN: Soft, nontender, nondistended, normoactive bowel sounds. No palpable organomegaly. MUSCULOSKELETAL: No joint swelling or deformity. EXTREMITIES: Pain/swelling/tenderness with movement of right lower extremity NEUROLOGICAL: Gross neurological examination did not reveal any focal deficits. diffuse weakness SKIN: No rashes. right surgical dressing is dry and intact Please refer to medication reconciliation sheet for a list of medications. The impression and plan of care has been dictated by Lazara Thomas, Nurse Practitioner as directed. Dr. Yamel MD I have performed a history and examination and MDM of this patient, discussed the same with the dictator, and agree with the dictator's assessment and plan as written ,documented as a scribe. Based on total visit time, I have performed more than 50% of the visit. Patient Condition at Discharge: Fair Plan - Discharge Summary New Discharge Prescriptions: New Docusate [Colace] 100 mg PO DAILY PRN #15 capsule PRN Reason: Constipation Enoxaparin [Lovenox] 30 mg SQ DAILY 25 Days #25 each HYDROcodone/APAP 5-325MG [[place] 5-325] 1 tab PO Q6HR PRN #15 tab PRN Reason: Pain Sennosides-Docusate Sodium [Senokot-S] 2 each PO HS tab Metoprolol Succinate (ER) [Toprol XL] 50 mg PO DAILY Magnesium Hydroxide [Milk of Magnesia Concentrate] 2,400 mg PO DAILY PRN ml PRN Reason: Constipation Acetaminophen Tab [Tylenol] 650 mg PO Q6HR PRN tab PRN Reason: Mild Pain Or Fever > 100.5 traMADol HCl [Ultram] 50 mg PO QID PRN #6 tab PRN Reason: Moderate Pain Continue Pantoprazole Sodium [Protonix] 40 mg PO DAILY Ezetimibe [Zetia] 10 mg PO DAILY Fenofibrate Nanocrystallized [Fenofibrate] 145 mg PO DAILY Iron 27mg 1 tab PO DAILY Discontinued Aspirin EC [Ecotrin Low Dose] 81 mg PO DAILY Metoprolol Tartrate [Lopressor] 25 mg PO DAILY Discharge Medication List Ezetimibe [Zetia] 10 mg PO DAILY 04/22/21 [History] Fenofibrate Nanocrystallized [Fenofibrate] 145 mg PO DAILY 04/22/21 [History] Iron 27mg 1 tab PO DAILY 04/22/21 [History] Pantoprazole Sodium [Protonix] 40 mg PO DAILY 04/22/21 [History] Acetaminophen Tab [Tylenol] 650 mg PO Q6HR PRN tab 04/27/21 [Rx] Docusate [Colace] 100 mg PO DAILY PRN #15 capsule 04/27/21 [Rx] Enoxaparin [Lovenox] 30 mg SQ DAILY 25 Days #25 each 04/27/21 [Rx] HYDROcodone/APAP 5-325MG [[place] 5-325] 1 tab PO Q6HR PRN #15 tab 04/27/21 [Rx] Magnesium Hydroxide [Milk of Magnesia Concentrate] 2,400 mg PO DAILY PRN ml 04/27/21 [Rx] Metoprolol Succinate (ER) [Toprol XL] 50 mg PO DAILY 04/27/21 [Rx] Sennosides-Docusate Sodium [Senokot-S] 2 each PO HS tab 04/27/21 [Rx] traMADol HCl [Ultram] 50 mg PO QID PRN #6 tab 04/27/21 [Rx] Follow up Appointment(s)/Referral(s): Sean Fontanez DO [Doctor of Osteopathic Medicine] - 3 Weeks Nonstaff,Physician [REFERRING] - 1-2 days Ambulatory/Diagnostic Orders: Complete Blood Count w/diff [LAB.AMB] Time Frame: 3 Days, Location: None Selected Activity/Diet/Wound Care/Special Instructions: Orthopedic discharge instructions: 1. Weight-bear as tolerated with walker 2. Posterior hip precautions, this to include avoiding laying on the operative site, crossing the legs, sitting in a deep chair 3. Okay to remove kirit on 05/08/2021 4. Basic gauze dressing over incision, okay to shower directly over the incision 5. Keep heels elevated while lying in bed 6. Lovenox daily for 25 days for DVT prophylaxis 7. Plan for [facility] [address] Paris, please contact our office with any questions, Patient needs follow-up with primary care provider on discharge Patient will need outpatient follow-up with his metal bench patternmaker Recommend repeat labs of CBC, BMP in 2-3 days Continue current diet Patient will need to follow-up with orthopedics as scheduled Encourage oral intake especially protein Discharge Disposition: TRANSFER TO SNF/ECF
== END 2021-04-27 16:10 | DRG 521 ==
LOC: EC 21:16 → 4SSUR 21:57 → 5NMEDONC 23:22
PROVIDERS: ADMIT Internal Medicine; ATTEND Internal Medicine
PROC: 0SRR0JA Replacement of Right Hip Joint, Femoral Surface with Synthetic Substitute, Uncemented, Open Approach (ICD-10-PCS; principal; 2021-04-24 08:00)
DX: S72.001A Fracture of unspecified part of neck of right femur, initial encounter for closed fracture (principal); N17.0 Acute kidney failure with tubular necrosis; E87.2 Acidosis; N39.0 Urinary tract infection, site not specified; D62 Acute posthemorrhagic anemia; E11.22 Type 2 diabetes mellitus with diabetic chronic kidney disease; R41.3 Other amnesia; I12.9 Hypertensive chronic kidney disease with stage 1 through stage 4 chronic kidney disease, or unspecified chronic kidney disease; E78.5 Hyperlipidemia, unspecified; F03.90 Unspecified dementia, unspecified severity, without behavioral disturbance, psychotic disturbance, mood disturbance, and anxiety; I65.23 Occlusion and stenosis of bilateral carotid arteries; N18.9 Chronic kidney disease, unspecified; I25.10 Atherosclerotic heart disease of native coronary artery without angina pectoris; I25.2 Old myocardial infarction; I35.8 Other nonrheumatic aortic valve disorders; K21.9 Gastro-esophageal reflux disease without esophagitis; W06.XXXA Fall from bed, initial encounter; Y92.003 Bedroom of unspecified non-institutional (private) residence as the place of occurrence of the external cause; Z20.822 Contact with and (suspected) exposure to COVID-19; Z79.82 Long term (current) use of aspirin; Z79.899 Other long term (current) drug therapy; Z87.891 Personal history of nicotine dependence; Z95.1 Presence of aortocoronary bypass graft; Z88.6 Allergy status to analgesic agent; Z88.5 Allergy status to narcotic agent; Z88.8 Allergy status to other drugs, medicaments and biological substances; Z91.041 Radiographic dye allergy status; Z86.79 Personal history of other diseases of the circulatory system
CPT/HCPCS: 71045; 73501; 73502; 74230; 76770; 80048; 80053; 81001; 83540; 83550; 85025; 85027; 85610; 85730; 86850; 86900; 86901; 88305; 88311; 93005; 93306; 99285